=== PATIENT | female | born 1960 | race Caucasian/White ===

== ENCOUNTER 2020-06-04 09:28 | Emergency (ER) | payer BC, SELFPAY ==
--- NOTE | 2020-06-04 09:36 | DI.RAD.S_ITS ---
PROCEDURE: XR CHEST 1V INDICATIONS: chest pain TECHNIQUE: One view of the chest was acquired. COMPARISON: None. FINDINGS: Surgical changes and devices: None. Lungs and pleura: Lungs are clear. There is pulmonary interstitial prominence. No pleural effusions or pneumothorax. Mediastinum: Mediastinal contours appear normal. Heart size is normal. Bones and chest wall: No suspicious bony lesions. Overlying soft tissues appear unremarkable. IMPRESSION: No acute cardiopulmonary disease. Dictated by: Everton Sesay M.D. on 06/04/2020 at 10:53 Approved by: Everton Sesay M.D. on 06/04/2020 at 10:54
[2020-06-04 09:42] VITALS: BMI 32.9
[2020-06-04 09:44] VITALS: PULSE 85; RESP 19; O2SAT 96
[2020-06-04 10:00] VITALS: BP 129/79; PULSE 83; RESP 14; O2SAT 98
--- NOTE | 2020-06-04 10:00 | ED_ITS ---
HPI - Dizziness General Chief Complaint: Dizziness Stated Complaint: dizzy, heart beat is irregular Time Seen by Provider: 06/04/20 09:48 Source: patient Mode of arrival: Ambulatory Limitations: no limitations History of Present Illness HPI Narrative: Patient is a 59-year-old female presents with heart palpitations. She says they have been happening off and on for some time however today she feels like it was significantly worse and more frequent. She says she feels it with exertion sometimes and squatting down. She has had some testing done she had pulmonary function test and a heart stress test previously for this and she said that was fine. Today she just said it was not going away and she felt extremely dizzy and lightheaded. She is noted to have PVCs on the monitor. However at this time the seem to be in frequent she states that she is feeling better. She has not passed out. MD complaint: dizziness Timing: now resolved Description: lightheadedness Severity: moderate Review of Systems Review of Systems Narrative: GENERAL: Denies chills, fatigue, malaise, fever, sweats, travel HEENT: Denies sinus pain, ear pain, sore throat, difficulty swallowing, neck pain RESPIRATORY: Denies dyspnea, cough, wheezing, hemoptysis, sputum. CARDIOVASCULAR: + palpitations, + lightheaded see HPI GASTROINTESTINAL: Denies nausea, vomiting, abdominal pain, diarrhea, constipation, melena. : Denies dysuria, frequency, incontinence, hematuria, urinary retention, flank pain. MUSCULOSKELETAL: Denies weakness, joint pain, or bony pain SKIN: No rash, no erythema, no pruritus NEUROLOGIC: Denies weakness, headache, numbness, change in speech, confusion PSYCHIATRIC: No concerning psychosocial issues. 12 point review of systems is negative except for those stated above and HPI Patient History Medical History GERD (gastroesophageal reflux disease) (Acute) Hypothyroid (Acute) Social History Smoking Status: Former smoker Smoking Status: Former smoker Substance Use Type: does not use Exam Initial Vital Signs Initial Vital Signs: Vital Signs Pulse Rate 85 06/04/20 09:44 Respiratory Rate 19 06/04/20 09:44 Pulse Oximetry 96 06/04/20 09:44 GENERAL: Well-appearing, well-nourished and in no acute distress. HEENT: Head atraumatic,EOMI, pupils reactive, face symmetric, moist mucous membranes CARDIOVASCULAR: Regular rate and rhythm without murmurs, rubs or gallops. RESPIRATORY: Breath sounds equal bilaterally, no wheezes rales or rhonchi. ABDOMEN: Soft, nontender. Normoactive bowel sounds all 4 quadrants. No guarding or rebound. EXTREMITIES: Normal range of motion, no clubbing or edema. Neurovascularly intact NEUROLOGICAL: Alert and oriented x4.Normal gait and speech. SKIN: Warm, dry, no laceration, no petechiae, no rashes or lesions. Course Orders Ordered: ED Orders 06/04/20 10:36 Complete Blood Count AUTO DIFF Stat Comprehensive Metabolic Panel Stat Lipase Stat Partial Thromboplastin Time Stat Prothrombin Time INR Stat Thyroid Stimulating Hormone Stat Troponin & CK Cardiac Panel Stat Discontinued Medications Sodium Chloride (Normal Saline 0.9%) 1,000 mls @ 1,000 mls/hr IV BOLUS PRN PRN Reason: Fluid replacement Vital Signs Vital signs: Vital Signs - 8 hr 06/04/20 11:00 06/04/20 11:25 06/04/20 11:30 Pulse Rate 78 81 74 Respiratory Rate 25 H 9 L 14 Blood Pressure 137/73 134/77 Pulse Oximetry 95 96 95 MDM - Dizziness Lab Data Attestation: I reviewed the patient's lab results. Result diagrams: 06/04/20 10:36 06/04/20 10:36 Labs: Lab Results 06/04/20 06/04/20 06/04/20 Range/Units 10:36 10:36 10:36 WBC 8.8 (4.5-11.0) X10^3/uL RBC 4.56 (4.0-5.2) X10^6/uL Hgb 12.7 (12.0-16.0) g/dL Hct 37.8 (36-46) % MCV 82.9 (80-100) fL MCH 27.9 (26-34) PG MCHC 33.7 (30-36) % RDW 13.4 (11.6-14.8) % Plt Count 360 (150-400) X10^3/uL Neut % (Auto) 57.9 (50-75) % Lymph % (Auto) 26.5 (25-40) % Cata[place]oula % (Auto) 10.6 (3-14) % Eos % (Auto) 3.5 (2-4) % Baso % (Auto) 1.5 (0-2) % Neut # (Auto) 5100 (5495-6147) /uL Lymph # (Auto) 2300 (8578-6013) /uL C[place]oula # (Auto) 900 (0-900) /uL Eos # (Auto) 300 (0-450) /uL Baso # (Auto) 100 (0-100) /uL PT 24.4 H (10.1-12.7) SECONDS INR 2.1 H (0.9-1.3) APTT 40 H (26.4-36.2) SECONDS Sodium 138 (137-145) mmol/L Potassium 4.2 (3.4-5.1) mmol/L Chloride 103 (98-107) mmol/L Carbon Dioxide 30 (22-32) mmol/L BUN 20 H (7-17) mg/dL Creatinine 0.62 (0.52-1.04) mg/dL Estimated GFR > 60.0 (>60) mL/min BUN/Creatinine Ratio 32.3 H (6-22) Glucose 97 (70-100) mg/dL Calcium 9.5 (8.4-10.2) mg/dL Total Bilirubin 0.4 (0.2-1.3) mg/dL AST 41 H (14-36) IU/L ALT 41 H (<35) IU/L Alkaline Phosphatase 104 (38-126) U/L Total Creatine Kinase 77 (30-135) U/L CK-MB (CK-2) TNP CK-MB (CK-2) Rel Index TNP Troponin I < 0.012 (0.01-0.034) ng/mL Total Protein 7.4 (6.3-8.2) g/dL Albumin 4.3 (3.5-5.0) g/dL Globulin 3.1 (1.7-4.1) g/dL Albumin/Globulin Ratio 1.4 (1.0-2.8) Lipase 190 (23-300) U/L TSH (0.47-4.68) uIU/mL //20 Range/Units 10:36 WBC (4.5-11.0) X10^3/uL RBC (4.0-5.2) X10^6/uL Hgb (12.0-16.0) g/dL Hct (36-46) % MCV (80-100) fL MCH (26-34) PG MCHC (30-36) % RDW (11.6-14.8) % Plt Count (150-400) X10^3/uL Neut % (Auto) (50-75) % Lymph % (Auto) (25-40) % Cata[place]oula % (Auto) (3-14) % Eos % (Auto) (2-4) % Baso % (Auto) (0-2) % Neut # (Auto) (7053-2058) /uL Lymph # (Auto) (6399-5946) /uL Cata[place]oula # (Auto) (0-900) /uL Eos # (Auto) (0-450) /uL Baso # (Auto) (0-100) /uL PT (10.1-12.7) SECONDS INR (0.9-1.3) APTT (26.4-36.2) SECONDS Sodium (137-145) mmol/L Potassium (3.4-5.1) mmol/L Chloride (98-107) mmol/L Carbon Dioxide (22-32) mmol/L BUN (7-17) mg/dL Creatinine (0.52-1.04) mg/dL Estimated GFR (>60) mL/min BUN/Creatinine Ratio (6-22) Glucose (70-100) mg/dL Calcium (8.4-10.2) mg/dL Total Bilirubin (0.2-1.3) mg/dL AST (14-36) IU/L ALT (<35) IU/L Alkaline Phosphatase (38-126) U/L Total Creatine Kinase (30-135) U/L CK-MB (CK-2) CK-MB (CK-2) Rel Index Troponin I (0.01-0.034) ng/mL Total Protein (6.3-8.2) g/dL Albumin (3.5-5.0) g/dL Globulin (1.7-4.1) g/dL Albumin/Globulin Ratio (1.0-2.8) Lipase (23-300) U/L TSH 1.41 (0.47-4.68) uIU/mL Imaging Data Chest x-ray: Radiologist's Impression: PROCEDURE: XR CHEST 1V INDICATIONS: chest pain TECHNIQUE: One view of the chest was acquired. COMPARISON: None. FINDINGS: Surgical changes and devices: None. Lungs and pleura: Lungs are clear. There is pulmonary interstitial prominence. No pleural effusions or pneumothorax. Mediastinum: Mediastinal contours appear normal. Heart size is normal. Bones and chest wall: No suspicious bony lesions. Overlying soft tissues appear unremarkable. IMPRESSION: No acute cardiopulmonary disease. Dictated by: Everton Sesay M.D. on 06/04/2020 at 10:53 ECG Data Attestation: I personally reviewed and interpreted this ECG as follows: Prior ECG tracings: not available for review Interpretation: Normal sinus rhythm rate 86 p.r. interval 146 QRS [address] elevation depression or T-wave inversions MDM Narrative Medical decision making narrative: Patient has had infrequent PVCs on the monitor. She is overall feeling better blood work is reassuring. I recommend that she have an outpatient Holter monitor which can be set up with her PCP Discharge Plan Departure Patient Disposition: Home Clinical Impression: Heart palpitations, Premature ventricular contraction Discharge Date/Time: 06/04/20 12:02 Activity Restrictions/Additional Instructions: *You have been diagnosed with heart palpitations, PVCs *What to do: At this time I recommend you have outpatient workup including Holter monitor which your primary can set up for you *Continue to take medications as directed *Follow up with your primary care provider in 2-3 days *Return to ER if you should have increasing palpitations dizziness, lightheadedness, passing out, worsening chest or any new, worsening or concerning symptoms Referrals: Bj Wong MD [Primary Care Provider] -
[2020-06-04 10:30] VITALS: BP 119/80; PULSE 86; RESP 28; O2SAT 94
[2020-06-04 10:45] LABS: Add Manual Diff / Slide Review NO; Basophils Absolute Auto 100 /uL (0-100); Basophils Percent Auto 1.5 % (0-2); Eosinophils Absolute Auto 300 /uL (0-450); Eosinophils Percent Auto 3.5 % (2-4); Hematocrit 37.8 % (36-46); Hemoglobin 12.7 g/dL (12.0-16.0); Lymphocytes Absolute Auto 2300 /uL (1100-4500); Lymphocytes Percent Auto 26.5 % (25-40); Mean Corpuscular HGB Conc 33.7 % (30-36); Mean Corpuscular Hemoglobin 27.9 PG (26-34); Mean Corpuscular Volume 82.9 fL (80-100); Monocytes Absolute Auto 900 /uL (0-900); Monocytes Percent Auto 10.6 % (3-14); Neutrophils Absolute Auto 5100 /uL (1500-7000); Neutrophils Percent Auto 57.9 % (50-75); Platelet Count 360 X10^3/uL (150-400); Red Blood Cell Count 4.56 X10^6/uL (4.0-5.2); Red Cell Distribution Width 13.4 % (11.6-14.8); White Blood Cell Count 8.8 X10^3/uL (4.5-11.0)
[2020-06-04 10:52] LABS: INR 2.1 (0.9-1.3); Prothrombin Time 24.4 SECONDS (10.1-12.7)
[2020-06-04 10:54] LABS: PTT Partial Thromboplastin Tim 40 SECONDS (26.4-36.2)
[2020-06-04 10:57] LABS: Alanine Aminotransferase 41 IU/L (<35); Albumin 4.3 g/dL (3.5-5.0); Albumin Globulin Ratio 1.4 (1.0-2.8); Alkaline Phosphatase 104 U/L (38-126); Aspartate Aminotransferase 41 IU/L (14-36); BUN Creatinine Ratio 32.3 (6-22); Bilirubin Total 0.4 mg/dL (0.2-1.3); Blood Urea Nitrogen 20 mg/dL (7-17); Calcium 9.5 mg/dL (8.4-10.2); Carbon Dioxide 30 mmol/L (22-32); Chloride 103 mmol/L (98-107); Creatine Kinase 77 U/L (30-135); Estimated Glomerular Filt Rate > 60.0 mL/min (>60); Globulin 3.1 g/dL (1.7-4.1); Glucose 97 mg/dL (70-100); HEMOLYSIS < 15 (0-50); Lipase 190 U/L (23-300); Potassium 4.2 mmol/L (3.4-5.1); Sodium 138 mmol/L (137-145); Total Protein 7.4 g/dL (6.3-8.2)
[2020-06-04 11:00] VITALS: PULSE 78; RESP 25; O2SAT 95
[2020-06-04 11:08] LABS: Troponin I < 0.012 ng/mL (0.01-0.034)
[2020-06-04 11:25] VITALS: BP 137/73; PULSE 81; RESP 9; O2SAT 96
[2020-06-04 11:30] VITALS: BP 134/77; PULSE 74; RESP 14; O2SAT 95
[2020-06-04 11:34] LABS: Thyroid Stimulating Hormone 1.41 uIU/mL (0.47-4.68)
== END 2020-06-04 12:02 | disposition home or self-care (01) ==
PROVIDERS: Emergency Provider Emergency Medicine; PCP Family Medicine
DX: R00.2 Palpitations (principal); I49.3 Ventricular premature depolarization; R07.9 Chest pain, unspecified; K21.9 Gastro-esophageal reflux disease without esophagitis; E03.9 Hypothyroidism, unspecified
CPT/HCPCS: 36415; 71045; 80053; 82550; 83690; 84443; 84484; 85025; 85610; 85730; 93005; 99284

== ENCOUNTER 2021-02-07 07:30 | Outpatient (RCR) | payer OTHER, BC, SELFPAY ==
--- NOTE | 2020-12-11 12:04 | PT.OIE ---
Current Diagnoses Other chronic pain (12/11/20) Low back pain (12/11/20) Difficulty in walking, not elsewhere classified (12/11/20) Abnormal posture (12/11/20) Weakness (12/11/20) Past Medical History (Last Reviewed 06/04/20 @ 10:04 by Britney Laughlin DO) GERD (gastroesophageal reflux disease) Hypothyroid Visit Care Team Role Provider Type Bj Wong MD Attending Provider Non-Staff Primary Care Provider Referring Provider Specialty: Medical Address: [address] [place] [address], [phone] Email: Physical Therapy Initial Evaluation PT-OP-A Visit Information Start: 12/10/20 09:43 Freq: Status: Active Protocol: Document 12/11/20 08:21 [facility] (Rec: 12/11/20 09:01 [facility] [id number]) Out-Patient Physical Therapy Visit Information Visit Information Visit Type Initial Evaluation Visit Start Time 08:20 Visit Stop Time 09:00 Total Visit Minutes 40 Visit Number 1 Number of TREATMENT MANAGER Visits 0 PT-OP-B Current Condition Start: 12/10/20 09:43 Freq: Status: Active Protocol: Document 12/11/20 08:21 [facility] (Rec: 12/11/20 09:01 [facility] [id number]) Current Condition History of Current Condition Onset Date worsening 6 months ago Current Complaints LBP History of Current Condition Pt reports chronic LBP for a couple years where occ she tweaks it but it typically gets better and goes away relatively quickly. 6 months ago, pain started to get worse and is not going away. Pt reports her back felt out and couldn't stand and do stuff like she wants to and they updated furniture which has not made a big difference. Years ago, she fell off a stool to the ground and R side has been side that hurt. She has seen her chiropractor and has been still with short term relief. She did PT a while ago and he did a manipulation that did help her. 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 Has to move slowly to fully straighten up when getting up from chair. Pt reports mm relaxors were given and they only help her get to sleep but do not help w/ pain. Pt reports when she squats down, she cannot get up w/o something to hold onto. 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, R achilles lengthening PT-OP-C Subjective Start: 12/10/20 09:43 Freq: Status: Active Protocol: Document 12/11/20 08:21 [facility] (Rec: 12/11/20 09:01 [facility] [id number]) Patient Questionnaires Oswestry Low Back Index Oswestry Score 21/50 OP-PT Pain Assessment Location LB Pain Location Details R LB/SI region Scale Used 4/10 constant, worst 10/10 Frequency Constant Radiating Location B lat hips, L buttocks & post leg w/staying in position too long Pain Aggravating Factors Sitting,Walking,Lifting Other Pain Aggravating Factors sit>stand, get out of car Pain Alleviating Factors Cold PT-OP-F Manual Assessment Start: 12/10/20 09:43 Freq: Status: Active Protocol: Document 12/11/20 08:21 [facility] (Rec: 12/11/20 09:01 [facility] [id number]) Manual Assessments Joint Mobility Assessment Joint Mobility Assessment R ijliac crest higher, equal greater trochanters, B femoral IR, neutral tibias PT-OP-G Mobility & Gait Start: 12/10/20 09:43 Freq: Status: Active Protocol: Document 12/11/20 08:21 [facility] (Rec: 12/11/20 09:01 [facility] [id number]) OP Gait Assessment Comments Gait Comments dec push off w/pelvis rotation , LLE adduction PT-OP-J Posture/Palpation/Skin Start: 12/10/20 09:43 Freq: Status: Active Protocol: Document 12/11/20 08:21 [facility] (Rec: 12/11/20 09:01 [facility] [id number]) Posture Evaluation Oc Postural Classification System Oc Postural Classifications Posterior/Anterior Vertebral Compression Test 0 Elbow Flexion Test 2 Lumbar Protective Mechanism Left AP 0 Lumbar Protective Mechanism Right AP 0 Lumbar Protective Mechanism Left PA 2 Lumbar Protective Mechanism Right PA 3 Leg Swing Left Hard End Feel,Limited Leg Swing Right Hard End Feel Comments Posture Comments knees lock, inc kyphosis, slight R pelvic shear PT-OP-K Range of Motion Start: 12/10/20 09:43 Freq: Status: Active Protocol: Document 12/11/20 08:21 [facility] (Rec: 12/11/20 09:01 [facility] [id number]) Lumbar Spine Range of Motion Lumbar Spine Active Degrees Flexion 49 Extension 5 Rotation Left 31 Rotation Right 45 Lateral Flexion Left 17 Lateral Flexion Right 20 Comments pain on R side w/R SB PT-OP-L Special Tests Start: 12/10/20 09:43 Freq: Status: Active Protocol: Document 12/11/20 08:21 [facility] (Rec: 12/11/20 09:01 [facility] [id number]) Special Tests Lumbar Spine Special Tests Straight Leg Raise Test Results 78 L,74 R no back pain HS tightness Slump Test Results neg B PT-OP-M Strength Start: 12/10/20 09:43 Freq: Status: Active Protocol: Document 12/11/20 08:21 [facility] (Rec: 12/11/20 09:01 [facility] [id number]) Hip Strength Hip Manual Muscle Testing Right Flexion (L2) 3 Fair Extension (S1) 3 Fair Abduction 4 Good External Rotation 3+ Fair+ Internal Rotation 4 Good Comments pain w/hip flex Left Extension (S1) 3 Fair Abduction 4 Good External Rotation 4 Good Internal Rotation 4 Good Knee Strength Knee Manual Muscle Testing Right Flexion (S2) 5 Normal Extension (L3) 5 Normal Left Flexion (S2) 5 Normal Extension (L3) 5 Normal Ankle/Foot Strength Ankle and Foot Manual Muscle Testing Right Dorsiflexion (L4) 5 Normal Plantarflexion (S1) 5 Normal Left Dorsiflexion (L4) 5 Normal Plantarflexion (S1) 5 Normal Comments seatd PF testing B PT-OP-Q Treatments Start: 12/10/20 09:43 Freq: Status: Active Protocol: Document 12/11/20 08:21 [facility] (Rec: 12/11/20 09:01 [facility] [id number]) Therapeutic Exercises Prone Exercises ext Prone Exercise Name hip alt Side bilateral Reps/Minutes 10 PT-OP-T Assessment and Plan Start: 12/10/20 09:43 Freq: Status: Active Protocol: Document 12/11/20 08:21 [facility] (Rec: 12/11/20 09:01 [facility] [id number]) Physical Therapy Assessment Rehab Potential Rehabilitation Potential Good Evaluation Complexity Number of Personal Factors/Comorbidities 3 or More Number of Body Systems Impaired 4 or More Clinical Presentation at Evaluation Evolving Impairments Impairments Activity Tolerance,Functional Activities,Functional Mobility ,Gait,Pain,Posture,ROM,Soft Tissue Mobility,Strength, Transfers Goals posture Deployment Manager Goal (LTG) Pt will show improved posture w/improvement in score of VCT to at least 3/5 to imrpove core mm activiation & dec pain . LTG Duration 02/08/21 walking Short Term Goal (STG) pt will be able to walk .5 mile with no more than 2 point increase in pain. STG Duration 01/08/21 Deployment Manager Goal (LTG) Pt will be able to return to walking program and walk 2 miles without increased pain. LTG Duration 02/08/21 JEIMY Impairment 21/50 Short Term Goal (STG) Pt will improve JEIMY score to 15/50 to show improved functional ability. STG Duration 01/08/21 Deployment Manager Goal (LTG) Pt will improve JEIMY score to 5 /50 to show improved functional ability. LTG Duration 02/08/21 mobility Short Term Goal (STG) Pt will be able to do sit to stand from chair without increased pain and without difficulty. STG Duration 01/08/21 Usp Goal (LTG) Pt will be able to squat to ground and lift objects with good mechanics without difficulty or inc pain. LTG Duration 02/08/21 strength Usp Goal (LTG) Pt will score 3/5 LPM, 4/5 EFT & at least 4+/5 on all LE MMT to show improved strength and stability to allow pt to move more with less pain. LTG Duration 02/08/21 Assessment Summary Assessment Pt has chronic LBP with occ pain into B hips and pain into LLE that has worsened in the past 6 months. She has constant pain that increases with staying in any position too long especially sitting or walking extended. She is unable to lift and noticed difficulty w/straightening up after getting out of a chair d /t back pain and difficulty squatting towards the ground d /t leg weakness. She had overall dec core & LE strengthen when tested today, impaired gait mechanics, dec lumbar ROM, and impaired posture. She would benefit from skilled PT to work on these deficits in order to return her to typical daily activities without increased pain. Physical Therapy Plan Frequency and Duration Frequency of Treatment 2x/Week Duration of Treatment 2 months Plan of Care Start Date 12/11/20 Plan of Care End Date 02/08/21 Therapeutic Interventions Therapeutic Interventions Aquatic Therapy,Balance Training,Gait Training,Home Exercise Program,Joint Mobilizations,Manual Therapy, Neuromuscular Re-education, Patient/Caregiver Education, Self-Care/Home Management,Soft Tissue Mobilization,Taping, Therapeutic Activities, Therapeutic Exercises Modalities Cold Pack/Ice Massage,Electric Stimulation,Hot Packs, Traction- Mechanical, Ultrasound Next Visit Focus/Plan Next Note Type Treatment Note Next Visit Plan sleep position, desk position, core exercise program, manual STM to lumbar spine
--- NOTE | 2020-12-11 12:04 | PT.OPPOC ---
Physical, Occupational & Speech Therapy At [facility] Current Diagnoses Other chronic pain (12/11/20) Low back pain (12/11/20) Difficulty in walking, not elsewhere classified (12/11/20) Abnormal posture (12/11/20) Weakness (12/11/20) Visit Care Team Role Provider Type Bj Wong MD Attending Provider Non-Staff Primary Care Provider Referring Provider Specialty: Medical Address: [address] [place] [address], [phone] Email: Plan Of Care PT-OP-T Assessment and Plan Start: 12/10/20 09:43 Freq: Status: Active Protocol: Document 12/11/20 08:21 [facility] (Rec: 12/11/20 09:01 [facility] [id number]) Physical Therapy Assessment Rehab Potential Rehabilitation Potential Good Evaluation Complexity Number of Personal Factors/Comorbidities 3 or More Number of Body Systems Impaired 4 or More Clinical Presentation at Evaluation Evolving Impairments Impairments Activity Tolerance,Functional Activities,Functional Mobility ,Gait,Pain,Posture,ROM,Soft Tissue Mobility,Strength, Transfers Goals posture Nursing Home Goal (LTG) Pt will show improved posture w/improvement in score of VCT to at least 3/5 to imrpove core mm activiation & dec pain . LTG Duration 02/08/21 walking Short Term Goal (STG) pt will be able to walk .5 mile with no more than 2 point increase in pain. STG Duration 01/08/21 Drop Forger Goal (LTG) Pt will be able to return to walking program and walk 2 miles without increased pain. LTG Duration 02/08/21 JEIMY Impairment 21/50 Short Term Goal (STG) Pt will improve JEIMY score to 15/50 to show improved functional ability. STG Duration 01/08/21 Nursing Home Goal (LTG) Pt will improve JEIMY score to 5 /50 to show improved functional ability. LTG Duration 02/08/21 mobility Short Term Goal (STG) Pt will be able to do sit to stand from chair without increased pain and without difficulty. STG Duration 01/08/21 Nursing Home Goal (LTG) Pt will be able to squat to ground and lift objects with good mechanics without difficulty or inc pain. LTG Duration 02/08/21 strength Nursing Home Goal (LTG) Pt will score 3/5 LPM, 4/5 EFT & at least 4+/5 on all LE MMT to show improved strength and stability to allow pt to move more with less pain. LTG Duration 02/08/21 Assessment Summary Assessment Pt has chronic LBP with occ pain into B hips and pain into LLE that has worsened in the past 6 months. She has constant pain that increases with staying in any position too long especially sitting or walking extended. She is unable to lift and noticed difficulty w/straightening up after getting out of a chair d /t back pain and difficulty squatting towards the ground d /t leg weakness. She had overall dec core & LE strengthen when tested today, impaired gait mechanics, dec lumbar ROM, and impaired posture. She would benefit from skilled PT to work on these deficits in order to return her to typical daily activities without increased pain. Physical Therapy Plan Frequency and Duration Frequency of Treatment 2x/Week Duration of Treatment 2 months Plan of Care Start Date 12/11/20 Plan of Care End Date 02/08/21 Therapeutic Interventions Therapeutic Interventions Aquatic Therapy,Balance Training,Gait Training,Home Exercise Program,Joint Mobilizations,Manual Therapy, Neuromuscular Re-education, Patient/Caregiver Education, Self-Care/Home Management,Soft Tissue Mobilization,Taping, Therapeutic Activities, Therapeutic Exercises Modalities Cold Pack/Ice Massage,Electric Stimulation,Hot Packs, Traction- Mechanical, Ultrasound Next Visit Focus/Plan Next Note Type Treatment Note Next Visit Plan sleep position, desk position, core exercise program, manual STM to lumbar spine Plan of Care Dates Plan of Care Start Date 12/11/20 Plan of Care End Date 02/08/21 Electronically Signed by: Leta Miller, PT 12/11/20 [id number] Please Sign and Return: I have reviewed this Plan of Care and certify that the skilled therapy services above are required to meet the patient?s needs. Physician Signature Date Printed Name and Credentials Clinical Instructor Signature Printed Name and Credentials
--- NOTE | 2020-12-18 13:46 | PT.OTN ---
Current Diagnoses Other chronic pain (12/18/20) Low back pain (12/18/20) Difficulty in walking, not elsewhere classified (12/18/20) Abnormal posture (12/18/20) Weakness (12/18/20) Physical Therapy Treatment Note PT-OP-A Visit Information Start: 12/10/20 09:43 Freq: Status: Active Protocol: Document 12/18/20 13:02 [facility] (Rec: 12/18/20 13:46 [facility] [id number]) Out-Patient Physical Therapy Visit Information Visit Information Visit Type Treatment Note Visit Start Time 13:00 Visit Stop Time 13:51 Total Visit Minutes 51 Visit Number 2 Number of CUSTOMS VERIFIER Visits 0 PT-OP-B Current Condition Start: 12/10/20 09:43 Freq: Status: Active Protocol: Document 12/11/20 08:21 [facility] (Rec: 12/11/20 09:01 [facility] [id number]) Current Condition History of Current Condition Onset Date worsening 6 months ago Current Complaints LBP History of Current Condition Pt reports chronic LBP for a couple years where occ she tweaks it but it typically gets better and goes away relatively quickly. 6 months ago, pain started to get worse and is not going away. Pt reports her back felt out and couldn't stand and do stuff like she wants to and they updated furniture which has not made a big difference. Years ago, she fell off a stool to the ground and R side has been side that hurt. She has seen her chiropractor and has been still with short term relief. She did PT a while ago and he did a manipulation that did help her. 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 Has to move slowly to fully straighten up when getting up from chair. Pt reports mm relaxors were given and they only help her get to sleep but do not help w/ pain. Pt reports when she squats down, she cannot get up w/o something to hold onto. 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 FOrgot exercise PT-OP-F Manual Assessment Start: 12/10/20 09:43 Freq: Status: Active Protocol: Document 12/11/20 08:21 [facility] (Rec: 12/11/20 09:01 [facility] [id number]) Manual Assessments Joint Mobility Assessment Joint Mobility Assessment R ijliac crest higher, equal greater trochanters, B femoral IR, neutral tibias PT-OP-G Mobility & Gait Start: 12/10/20 09:43 Freq: Status: Active Protocol: Document 12/11/20 08:21 [facility] (Rec: 12/11/20 09:01 [facility] [id number]) OP Gait Assessment Comments Gait Comments dec push off w/pelvis rotation , LLE adduction PT-OP-J Posture/Palpation/Skin Start: 12/10/20 09:43 Freq: Status: Active Protocol: Document 12/11/20 08:21 [facility] (Rec: 12/11/20 09:01 [facility] [id number]) Posture Evaluation [facility] Postural Classification System Oc Postural Classifications Posterior/Anterior Vertebral Compression Test 0 Elbow Flexion Test 2 Lumbar Protective Mechanism Left AP 0 Lumbar Protective Mechanism Right AP 0 Lumbar Protective Mechanism Left PA 2 Lumbar Protective Mechanism Right PA 3 Leg Swing Left Hard End Feel,Limited Leg Swing Right Hard End Feel Comments Posture Comments knees lock, inc kyphosis, slight R pelvic shear PT-OP-K Range of Motion Start: 12/10/20 09:43 Freq: Status: Active Protocol: Document 12/11/20 08:21 [facility] (Rec: 12/11/20 09:01 [facility] [id number]) Lumbar Spine Range of Motion Lumbar Spine Active Degrees Flexion 49 Extension 5 Rotation Left 31 Rotation Right 45 Lateral Flexion Left 17 Lateral Flexion Right 20 Comments pain on R side w/R SB PT-OP-L Special Tests Start: 12/10/20 09:43 Freq: Status: Active Protocol: Document 12/11/20 08:21 [facility] (Rec: 12/11/20 09:01 [facility] [id number]) Special Tests Lumbar Spine Special Tests Straight Leg Raise Test Results 78 L,74 R no back pain HS tightness Slump Test Results neg B PT-OP-M Strength Start: 12/10/20 09:43 Freq: Status: Active Protocol: Document 12/11/20 08:21 [facility] (Rec: 12/11/20 09:01 [facility] [id number]) Hip Strength Hip Manual Muscle Testing Right Flexion (L2) 3 Fair Extension (S1) 3 Fair Abduction 4 Good External Rotation 3+ Fair+ Internal Rotation 4 Good Comments pain w/hip flex Left Extension (S1) 3 Fair Abduction 4 Good External Rotation 4 Good Internal Rotation 4 Good Knee Strength Knee Manual Muscle Testing Right Flexion (S2) 5 Normal Extension (L3) 5 Normal Left Flexion (S2) 5 Normal Extension (L3) 5 Normal Ankle/Foot Strength Ankle and Foot Manual Muscle Testing Right Dorsiflexion (L4) 5 Normal Plantarflexion (S1) 5 Normal Left Dorsiflexion (L4) 5 Normal Plantarflexion (S1) 5 Normal Comments seatd PF testing B PT-OP-Q Treatments Start: 12/10/20 09:43 Freq: Status: Active Protocol: Document 12/18/20 13:02 [facility] (Rec: 12/18/20 13:46 [facility] [id number]) Therapeutic Exercises Supine Exercises bridge Supine Exercise Name focus on neutral core & berathing Side bilateral Reps/Minutes 5 sec x8 pelvic tilt Reps/Minutes 10 sec x8 Comments focus breathing hip iso Supine Exercise Name flex single leg Side bilateral Reps/Minutes 30 sec Prone Exercises ext Prone Exercise Name hip alt Side bilateral Reps/Minutes 10 Therapeutic Activity Therapeutic Activity desk Name edu on desk set up and working on seated posture w/leg support sleep Name s/l sleep positioning w/ pillows Manual Therapy Treatment Soft Tissue Mobilization lumbar Body Location R>L QL & ES Mobilization Type Rolling,Strumming Intensity/Depth Moderate Body Position Prone PT-OP-R Modalities Start: 12/10/20 09:43 Freq: Status: Active Protocol: Document 12/18/20 13:02 [facility] (Rec: 12/18/20 13:46 [facility] [id number]) Hot Pack/Cold Pack Treatment Cold Pack Location lumbar Patient Position Prone Treatment Duration (minutes) 10 PT-OP-T Assessment and Plan Start: 12/10/20 09:43 Freq: Status: Active Protocol: Document 12/18/20 13:02 [facility] (Rec: 12/18/20 13:46 [facility] [id number]) Physical Therapy Assessment Goals posture Usp Goal (LTG) Pt will show improved posture w/improvement in score of VCT to at least 3/5 to imrpove core mm activiation & dec pain . LTG Duration 02/08/21 walking Short Term Goal (STG) pt will be able to walk .5 mile with no more than 2 point increase in pain. STG Duration 01/08/21 Usp Goal (LTG) Pt will be able to return to walking program and walk 2 miles without increased pain. LTG Duration 02/08/21 JEIMY Impairment 21/50 Short Term Goal (STG) Pt will improve JEIMY score to 15/50 to show improved functional ability. STG Duration 01/08/21 Usp Goal (LTG) Pt will improve JEIMY score to 5 /50 to show improved functional ability. LTG Duration 02/08/21 mobility Short Term Goal (STG) Pt will be able to do sit to stand from chair without increased pain and without difficulty. STG Duration 01/08/21 Director Of [employer] Applications Goal (LTG) Pt will be able to squat to ground and lift objects with good mechanics without difficulty or inc pain. LTG Duration 02/08/21 strength Usp Goal (LTG) Pt will score 3/5 LPM, 4/5 EFT & at least 4+/5 on all LE MMT to show improved strength and stability to allow pt to move more with less pain. LTG Duration 02/08/21 Assessment Summary Assessment Pt did well with excericses with no c/o pain but required signifiacnt cueing for breathing during exercises. Pt very opent o all desk and sleeping position suggestions. Physical Therapy Plan Frequency and Duration Frequency of Treatment 2x/Week Duration of Treatment 2 months Plan of Care Start Date 12/11/20 Plan of Care End Date 02/08/21 Next Visit Focus/Plan Next Note Type Treatment Note Next Visit Plan review HEP & manual for dec pain
--- NOTE | 2020-12-21 14:32 | PT.OTN ---
Current Diagnoses Other chronic pain (12/21/20) Low back pain (12/21/20) Difficulty in walking, not elsewhere classified (12/21/20) Abnormal posture (12/21/20) Weakness (12/21/20) Physical Therapy Treatment Note PT-OP-A Visit Information Start: 12/10/20 09:43 Freq: Status: Active Protocol: Document 12/21/20 13:52 [facility] (Rec: 12/21/20 14:32 [facility] [id number]) Out-Patient Physical Therapy Visit Information Visit Information Visit Type Treatment Note Visit Start Time 13:45 Visit Stop Time 14:23 Total Visit Minutes 38 Visit Number 3 Number of MANAGER TECHNOLOGY Visits 1 PT-OP-B Current Condition Start: 12/10/20 09:43 Freq: Status: Active Protocol: Document 12/11/20 08:21 [facility] (Rec: 12/11/20 09:01 [facility] [id number]) Current Condition History of Current Condition Onset Date worsening 6 months ago Current Complaints LBP History of Current Condition Pt reports chronic LBP for a couple years where occ she tweaks it but it typically gets better and goes away relatively quickly. 6 months ago, pain started to get worse and is not going away. Pt reports her back felt out and couldn't stand and do stuff like she wants to and they updated furniture which has not made a big difference. Years ago, she fell off a stool to the ground and R side has been side that hurt. She has seen her chiropractor and has been still with short term relief. She did PT a while ago and he did a manipulation that did help her. 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 Has to move slowly to fully straighten up when getting up from chair. Pt reports mm relaxors were given and they only help her get to sleep but do not help w/ pain. Pt reports when she squats down, she cannot get up w/o something to hold onto. 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 (Rec: 12/11/20 09:01 [facility] [id number]) Manual Assessments Joint Mobility Assessment Joint Mobility Assessment R ijliac crest higher, equal greater trochanters, B femoral IR, neutral tibias PT-OP-G Mobility & Gait Start: 12/10/20 09:43 Freq: Status: Active Protocol: Document 12/11/20 08:21 [facility] (Rec: 12/11/20 09:01 [facility] [id number]) OP Gait Assessment Comments Gait Comments dec push off w/pelvis rotation , LLE adduction PT-OP-J Posture/Palpation/Skin Start: 12/10/20 09:43 Freq: Status: Active Protocol: Document 12/11/20 08:21 [facility] (Rec: 12/11/20 09:01 [facility] [id number]) Posture Evaluation [facility] Postural Classification System Oc Postural Classifications Posterior/Anterior Vertebral Compression Test 0 Elbow Flexion Test 2 Lumbar Protective Mechanism Left AP 0 Lumbar Protective Mechanism Right AP 0 Lumbar Protective Mechanism Left PA 2 Lumbar Protective Mechanism Right PA 3 Leg Swing Left Hard End Feel,Limited Leg Swing Right Hard End Feel Comments Posture Comments knees lock, inc kyphosis, slight R pelvic shear PT-OP-K Range of Motion Start: 12/10/20 09:43 Freq: Status: Active Protocol: Document 12/11/20 08:21 [facility] (Rec: 12/11/20 09:01 [facility] [id number]) Lumbar Spine Range of Motion Lumbar Spine Active Degrees Flexion 49 Extension 5 Rotation Left 31 Rotation Right 45 Lateral Flexion Left 17 Lateral Flexion Right 20 Comments pain on R side w/R SB PT-OP-L Special Tests Start: 12/10/20 09:43 Freq: Status: Active Protocol: Document 12/11/20 08:21 [facility] (Rec: 12/11/20 09:01 [facility] [id number]) Special Tests Lumbar Spine Special Tests Straight Leg Raise Test Results 78 L,74 R no back pain HS tightness Slump Test Results neg B PT-OP-M Strength Start: 12/10/20 09:43 Freq: Status: Active Protocol: Document 12/11/20 08:21 [facility] (Rec: 12/11/20 09:01 [facility] [id number]) Hip Strength Hip Manual Muscle Testing Right Flexion (L2) 3 Fair Extension (S1) 3 Fair Abduction 4 Good External Rotation 3+ Fair+ Internal Rotation 4 Good Comments pain w/hip flex Left Extension (S1) 3 Fair Abduction 4 Good External Rotation 4 Good Internal Rotation 4 Good Knee Strength Knee Manual Muscle Testing Right Flexion (S2) 5 Normal Extension (L3) 5 Normal Left Flexion (S2) 5 Normal Extension (L3) 5 Normal Ankle/Foot Strength Ankle and Foot Manual Muscle Testing Right Dorsiflexion (L4) 5 Normal Plantarflexion (S1) 5 Normal Left Dorsiflexion (L4) 5 Normal Plantarflexion (S1) 5 Normal Comments seatd PF testing B PT-OP-Q Treatments Start: 12/10/20 09:43 Freq: Status: Active Protocol: Document 12/21/20 13:52 [facility] (Rec: 12/21/20 14:32 [facility] [id number]) Therapeutic Exercises Supine Exercises LTR Supine Exercise Name lower trunk rotation Side bilateral Reps/Minutes x8 bridge Supine Exercise Name focus on neutral core & berathing Side bilateral Reps/Minutes 5 sec x8 pelvic tilt Reps/Minutes 10 sec x8 Comments focus breathing Sidelying Exercises open book Side bilateral Reps/Minutes x8 Comments L shd hurts-d/c Therapeutic Activity Therapeutic Activity Picking up objects Name picking up objects from floor Comments Focusing on bending knees, flexing fwd from hips Manual Therapy Treatment Soft Tissue Mobilization lumbar Body Location R>L QL & ES Mobilization Type Rolling,Strumming Intensity/Depth Moderate Body Position Prone Comments prone and SL PT-OP-R Modalities Start: 12/10/20 09:43 Freq: Status: Active Protocol: Document 12/18/20 13:02 [facility] (Rec: 12/18/20 13:46 [facility] [id number]) Hot Pack/Cold Pack Treatment Cold Pack Location lumbar Patient Position Prone Treatment Duration (minutes) 10 PT-OP-T Assessment and Plan Start: 12/10/20 09:43 Freq: Status: Active Protocol: Document 12/21/20 13:52 [facility] (Rec: 12/21/20 14:32 [facility] [id number]) Physical Therapy Assessment Goals posture Retirement Goal (LTG) Pt will show improved posture w/improvement in score of VCT to at least 3/5 to imrpove core mm activiation & dec pain . LTG Duration 02/08/21 walking Short Term Goal (STG) pt will be able to walk .5 mile with no more than 2 point increase in pain. STG Duration 01/08/21 Running Specialist Goal (LTG) Pt will be able to return to walking program and walk 2 miles without increased pain. LTG Duration 02/08/21 JEIMY Impairment 21/50 Short Term Goal (STG) Pt will improve JEIMY score to 15/50 to show improved functional ability. STG Duration 01/08/21 Running Specialist Goal (LTG) Pt will improve JEIMY score to 5 /50 to show improved functional ability. LTG Duration 02/08/21 mobility Short Term Goal (STG) Pt will be able to do sit to stand from chair without increased pain and without difficulty. STG Duration 01/08/21 Retirement Goal (LTG) Pt will be able to squat to ground and lift objects with good mechanics without difficulty or inc pain. LTG Duration 02/08/21 strength Running Specialist Goal (LTG) Pt will score 3/5 LPM, 4/5 EFT & at least 4+/5 on all LE MMT to show improved strength and stability to allow pt to move more with less pain. LTG Duration 02/08/21 Assessment Summary Assessment Pt had L shd pain when SL on R during open book exercise but no pain when opening R. She has decreased thoracic rotation. Pt is working on getting a referral for L shd pain. She had no back pain during today's ther ex. Pt is still working on getting proper desk set up and working on finding a good sleep position. Focused today on picking up objects from floor/ how to properly lift dogs with knees bent, flexing fwd from hips with pt showing good understanding. Physical Therapy Plan Frequency and Duration Frequency of Treatment 2x/Week Duration of Treatment 2 months Plan of Care Start Date 12/11/20 Plan of Care End Date 02/08/21 Therapeutic Interventions Therapeutic Interventions Aquatic Therapy,Balance Training,Gait Training,Home Exercise Program,Joint Mobilizations,Manual Therapy, Neuromuscular Re-education, Patient/Caregiver Education, Self-Care/Home Management,Soft Tissue Mobilization,Taping, Therapeutic Activities, Therapeutic Exercises Modalities Cold Pack/Ice Massage,Electric Stimulation,Hot Packs, Traction- Mechanical, Ultrasound Next Visit Focus/Plan Next Note Type Treatment Note Next Visit Plan review proper form for lifting dogs/picking up objects from floor; manual for decreasing pain and add LTR to HEP
--- NOTE | 2020-12-24 10:32 | PT.OTN ---
Current Diagnoses Other chronic pain (12/24/20) Low back pain (12/24/20) Difficulty in walking, not elsewhere classified (12/24/20) Abnormal posture (12/24/20) Weakness (12/24/20) Physical Therapy Treatment Note PT-OP-A Visit Information Start: 12/10/20 09:43 Freq: Status: Active Protocol: Document 12/24/20 09:47 [facility] (Rec: 12/24/20 10:32 [facility] [id number]) Out-Patient Physical Therapy Visit Information Visit Information Visit Type Treatment Note Visit Start Time 09:45 Visit Stop Time 10:38 Total Visit Minutes 53 Visit Number 4 Number of BACKUP OPERATOR Visits 0 PT-OP-B Current Condition Start: 12/10/20 09:43 Freq: Status: Active Protocol: Document 12/11/20 08:21 [facility] (Rec: 12/11/20 09:01 [facility] [id number]) Current Condition History of Current Condition Onset Date worsening 6 months ago Current Complaints LBP History of Current Condition Pt reports chronic LBP for a couple years where occ she tweaks it but it typically gets better and goes away relatively quickly. 6 months ago, pain started to get worse and is not going away. Pt reports her back felt out and couldn't stand and do stuff like she wants to and they updated furniture which has not made a big difference. Years ago, she fell off a stool to the ground and R side has been side that hurt. She has seen her chiropractor and has been still with short term relief. She did PT a while ago and he did a manipulation that did help her. 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 Has to move slowly to fully straighten up when getting up from chair. Pt reports mm relaxors were given and they only help her get to sleep but do not help w/ pain. Pt reports when she squats down, she cannot get up w/o something to hold onto. 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 (Rec: 12/24/20 10:32 [facility] [id number]) OP-PT Subjective Patient Comments Patient Comments Pt reprots compliance with HEP and it is going better PT-OP-F Manual Assessment Start: 12/10/20 09:43 Freq: Status: Active Protocol: Document 12/11/20 08:21 [facility] (Rec: 12/11/20 09:01 [facility] [id number]) Manual Assessments Joint Mobility Assessment Joint Mobility Assessment R ijliac crest higher, equal greater trochanters, B femoral IR, neutral tibias PT-OP-G Mobility & Gait Start: 12/10/20 09:43 Freq: Status: Active Protocol: Document 12/11/20 08:21 [facility] (Rec: 12/11/20 09:01 [facility] [id number]) OP Gait Assessment Comments Gait Comments dec push off w/pelvis rotation , LLE adduction PT-OP-J Posture/Palpation/Skin Start: 12/10/20 09:43 Freq: Status: Active Protocol: Document 12/11/20 08:21 [facility] (Rec: 12/11/20 09:01 [facility] [id number]) Posture Evaluation [facility] Postural Classification System Oc Postural Classifications Posterior/Anterior Vertebral Compression Test 0 Elbow Flexion Test 2 Lumbar Protective Mechanism Left AP 0 Lumbar Protective Mechanism Right AP 0 Lumbar Protective Mechanism Left PA 2 Lumbar Protective Mechanism Right PA 3 Leg Swing Left Hard End Feel,Limited Leg Swing Right Hard End Feel Comments Posture Comments knees lock, inc kyphosis, slight R pelvic shear PT-OP-K Range of Motion Start: 12/10/20 09:43 Freq: Status: Active Protocol: Document 12/11/20 08:21 [facility] (Rec: 12/11/20 09:01 [facility] [id number]) Lumbar Spine Range of Motion Lumbar Spine Active Degrees Flexion 49 Extension 5 Rotation Left 31 Rotation Right 45 Lateral Flexion Left 17 Lateral Flexion Right 20 Comments pain on R side w/R SB PT-OP-L Special Tests Start: 12/10/20 09:43 Freq: Status: Active Protocol: Document 12/11/20 08:21 [facility] (Rec: 12/11/20 09:01 [facility] [id number]) Special Tests Lumbar Spine Special Tests Straight Leg Raise Test Results 78 L,74 R no back pain HS tightness Slump Test Results neg B PT-OP-M Strength Start: 12/10/20 09:43 Freq: Status: Active Protocol: Document 12/11/20 08:21 [facility] (Rec: 12/11/20 09:01 [facility] [id number]) Hip Strength Hip Manual Muscle Testing Right Flexion (L2) 3 Fair Extension (S1) 3 Fair Abduction 4 Good External Rotation 3+ Fair+ Internal Rotation 4 Good Comments pain w/hip flex Left Extension (S1) 3 Fair Abduction 4 Good External Rotation 4 Good Internal Rotation 4 Good Knee Strength Knee Manual Muscle Testing Right Flexion (S2) 5 Normal Extension (L3) 5 Normal Left Flexion (S2) 5 Normal Extension (L3) 5 Normal Ankle/Foot Strength Ankle and Foot Manual Muscle Testing Right Dorsiflexion (L4) 5 Normal Plantarflexion (S1) 5 Normal Left Dorsiflexion (L4) 5 Normal Plantarflexion (S1) 5 Normal Comments seatd PF testing B PT-OP-Q Treatments Start: 12/10/20 09:43 Freq: Status: Active Protocol: Document 12/24/20 09:47 [facility] (Rec: 12/24/20 10:32 [facility] [id number]) Therapeutic Exercises Supine Exercises LTR Supine Exercise Name focus on segmental control Side bilateral Reps/Minutes 8 bridge Supine Exercise Name progressed to january focus on neutral spien Side bilateral Reps/Minutes 10 pelvic tilt Reps/Minutes 5 hip iso Supine Exercise Name double leg Side bilateral Reps/Minutes 30 sec Standing Exercises stretch Standing Exercise Name hip flexor Side bilateral Reps/Minutes 30 sec squat Standing Exercise Name 1st set w/yard stick Side bilateral Reps/Minutes 2x12 hip hinge Side bilateral Reps/Minutes 15 Comments w/yard stick on back Manual Therapy Treatment Soft Tissue Mobilization glutes Body Location R Glutes & piriformis Mobilization Type Sustained Pressure Intensity/Depth Moderate Body Position Prone Comments w/hip ER/IR Joint Mobilizations hip Direction R hip on axis ER FM & B inf FM Self-Care/Home Management Treatment Education Other Education tennis ball roll out to glutes PT-OP-R Modalities Start: 12/10/20 09:43 Freq: Status: Active Protocol: Document 12/24/20 09:47 [facility] (Rec: 12/24/20 10:32 [facility] [id number]) Hot Pack/Cold Pack Treatment Cold Pack Location lumbar Patient Position Prone Treatment Duration (minutes) 10 PT-OP-T Assessment and Plan Start: 12/10/20 09:43 Freq: Status: Active Protocol: Document 12/24/20 09:47 [facility] (Rec: 12/24/20 10:32 [facility] [id number]) Physical Therapy Assessment Goals posture Senior Care Goal (LTG) Pt will show improved posture w/improvement in score of VCT to at least 3/5 to imrpove core mm activiation & dec pain . LTG Duration 02/08/21 walking Short Term Goal (STG) pt will be able to walk .5 mile with no more than 2 point increase in pain. STG Duration 01/08/21 Freelance Digital Project Manager Goal (LTG) Pt will be able to return to walking program and walk 2 miles without increased pain. LTG Duration 02/08/21 JEIMY Impairment 21/50 Short Term Goal (STG) Pt will improve JEIMY score to 15/50 to show improved functional ability. STG Duration 01/08/21 Freelance Digital Project Manager Goal (LTG) Pt will improve JEIMY score to 5 /50 to show improved functional ability. LTG Duration 02/08/21 mobility Short Term Goal (STG) Pt will be able to do sit to stand from chair without increased pain and without difficulty. STG Duration 01/08/21 Freelance Digital Project Manager Goal (LTG) Pt will be able to squat to ground and lift objects with good mechanics without difficulty or inc pain. LTG Duration 02/08/21 strength Freelance Digital Project Manager Goal (LTG) Pt will score 3/5 LPM, 4/5 EFT & at least 4+/5 on all LE MMT to show improved strength and stability to allow pt to move more with less pain. LTG Duration 02/08/21 Assessment Summary Assessment Pt had imrpoved hip flex and no pain with squat or full knee to chest push after inf mobs and improved ER on R side after ER mobs. She has tightness in glutes which likely limit motion and ability to get RLE onto LLE Physical Therapy Plan Next Visit Focus/Plan Next Note Type Treatment Note Next Visit Plan work on hip mobs & soft tissue massage as needed for better ROM, review bridge with march & hip hinge & squat
--- NOTE | 2020-12-27 11:46 | PT.OTN ---
Current Diagnoses Other chronic pain (12/27/20) Low back pain (12/27/20) Difficulty in walking, not elsewhere classified (12/27/20) Abnormal posture (12/27/20) Weakness (12/27/20) Physical Therapy Treatment Note PT-OP-A Visit Information Start: 12/10/20 09:43 Freq: Status: Active Protocol: Document 12/27/20 10:35 [facility] (Rec: 12/27/20 11:45 [facility] [id number]) Out-Patient Physical Therapy Visit Information Visit Information Visit Type Treatment Note Visit Start Time 10:36 Visit Stop Time 11:16 Total Visit Minutes 40 Visit Number 5 Number of FLASK PUSHER Visits 0 PT-OP-B Current Condition Start: 12/10/20 09:43 Freq: Status: Active Protocol: Document 12/11/20 08:21 [facility] (Rec: 12/11/20 09:01 [facility] [id number]) Current Condition History of Current Condition Onset Date worsening 6 months ago Current Complaints LBP History of Current Condition Pt reports chronic LBP for a couple years where occ she tweaks it but it typically gets better and goes away relatively quickly. 6 months ago, pain started to get worse and is not going away. Pt reports her back felt out and couldn't stand and do stuff like she wants to and they updated furniture which has not made a big difference. Years ago, she fell off a stool to the ground and R side has been side that hurt. She has seen her chiropractor and has been still with short term relief. She did PT a while ago and he did a manipulation that did help her. 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 Has to move slowly to fully straighten up when getting up from chair. Pt reports mm relaxors were given and they only help her get to sleep but do not help w/ pain. Pt reports when she squats down, she cannot get up w/o something to hold onto. 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 Today she has some sorenss but not as bad as yesterday. She is unsure why. Herrick fine after last treatment. Has been compliant w/exercises. Notes pain in back w/hip flexor stretch and L leg back PT-OP-F Manual Assessment Start: 12/10/20 09:43 Freq: Status: Active Protocol: Document 12/11/20 08:21 [facility] (Rec: 12/11/20 09:01 [facility] [id number]) Manual Assessments Joint Mobility Assessment Joint Mobility Assessment R ijliac crest higher, equal greater trochanters, B femoral IR, neutral tibias PT-OP-G Mobility & Gait Start: 12/10/20 09:43 Freq: Status: Active Protocol: Document 12/11/20 08:21 [facility] (Rec: 12/11/20 09:01 [facility] [id number]) OP Gait Assessment Comments Gait Comments dec push off w/pelvis rotation , LLE adduction PT-OP-J Posture/Palpation/Skin Start: 12/10/20 09:43 Freq: Status: Active Protocol: Document 12/11/20 08:21 [facility] (Rec: 12/11/20 09:01 [facility] [id number]) Posture Evaluation Oc Postural Classification System Oc Postural Classifications Posterior/Anterior Vertebral Compression Test 0 Elbow Flexion Test 2 Lumbar Protective Mechanism Left AP 0 Lumbar Protective Mechanism Right AP 0 Lumbar Protective Mechanism Left PA 2 Lumbar Protective Mechanism Right PA 3 Leg Swing Left Hard End Feel,Limited Leg Swing Right Hard End Feel Comments Posture Comments knees lock, inc kyphosis, slight R pelvic shear PT-OP-K Range of Motion Start: 12/10/20 09:43 Freq: Status: Active Protocol: Document 12/11/20 08:21 [facility] (Rec: 12/11/20 09:01 [facility] [id number]) Lumbar Spine Range of Motion Lumbar Spine Active Degrees Flexion 49 Extension 5 Rotation Left 31 Rotation Right 45 Lateral Flexion Left 17 Lateral Flexion Right 20 Comments pain on R side w/R SB PT-OP-L Special Tests Start: 12/10/20 09:43 Freq: Status: Active Protocol: Document 12/11/20 08:21 [facility] (Rec: 12/11/20 09:01 [facility] [id number]) Special Tests Lumbar Spine Special Tests Straight Leg Raise Test Results 78 L,74 R no back pain HS tightness Slump Test Results neg B PT-OP-M Strength Start: 12/10/20 09:43 Freq: Status: Active Protocol: Document 12/11/20 08:21 [facility] (Rec: 12/11/20 09:01 [facility] [id number]) Hip Strength Hip Manual Muscle Testing Right Flexion (L2) 3 Fair Extension (S1) 3 Fair Abduction 4 Good External Rotation 3+ Fair+ Internal Rotation 4 Good Comments pain w/hip flex Left Extension (S1) 3 Fair Abduction 4 Good External Rotation 4 Good Internal Rotation 4 Good Knee Strength Knee Manual Muscle Testing Right Flexion (S2) 5 Normal Extension (L3) 5 Normal Left Flexion (S2) 5 Normal Extension (L3) 5 Normal Ankle/Foot Strength Ankle and Foot Manual Muscle Testing Right Dorsiflexion (L4) 5 Normal Plantarflexion (S1) 5 Normal Left Dorsiflexion (L4) 5 Normal Plantarflexion (S1) 5 Normal Comments seatd PF testing B PT-OP-Q Treatments Start: 12/10/20 09:43 Freq: Status: Active Protocol: Document 12/27/20 10:35 [facility] (Rec: 12/27/20 11:45 [facility] [id number]) Therapeutic Exercises Supine Exercises bridge Supine Exercise Name progressed to january focus on neutral spien Side bilateral Reps/Minutes 10 Standing Exercises squat Standing Exercise Name 1st set w/yard stick Side bilateral Reps/Minutes 2x12 hip hinge Standing Exercise Name did seated & standing Side bilateral Reps/Minutes 12 ea Comments w/yard stick on back Manual Therapy Treatment Soft Tissue Mobilization lumbar Body Location R>L ES Mobilization Type Rolling,Strumming Intensity/Depth Moderate Body Position Prone Comments prone Joint Mobilizations innominate Joint R Direction ER FM sacrum Joint caudal FM & SONA hip Direction R hip on axis ER FM B Self-Care/Home Management Treatment Education Other Education desk set up and edu re: set up for reaching activities to avoid pain PT-OP-R Modalities Start: 12/10/20 09:43 Freq: Status: Active Protocol: Document 12/24/20 09:47 [facility] (Rec: 12/24/20 10:32 [facility] [id number]) Hot Pack/Cold Pack Treatment Cold Pack Location lumbar Patient Position Prone Treatment Duration (minutes) 10 PT-OP-T Assessment and Plan Start: 12/10/20 09:43 Freq: Status: Active Protocol: Document 12/27/20 10:35 [facility] (Rec: 12/27/20 11:45 [facility] [id number]) Physical Therapy Assessment Goals posture Body Mechanic Goal (LTG) Pt will show improved posture w/improvement in score of VCT to at least 3/5 to imrpove core mm activiation & dec pain . LTG Duration 02/08/21 walking Short Term Goal (STG) pt will be able to walk .5 mile with no more than 2 point increase in pain. STG Duration 01/08/21 Body Mechanic Goal (LTG) Pt will be able to return to walking program and walk 2 miles without increased pain. LTG Duration 02/08/21 JEIMY Impairment 21/50 Short Term Goal (STG) Pt will improve JEIMY score to 15/50 to show improved functional ability. STG Duration 01/08/21 Body Mechanic Goal (LTG) Pt will improve JEIMY score to 5 /50 to show improved functional ability. LTG Duration 02/08/21 mobility Short Term Goal (STG) Pt will be able to do sit to stand from chair without increased pain and without difficulty. STG Duration 01/08/21 Half-Way Goal (LTG) Pt will be able to squat to ground and lift objects with good mechanics without difficulty or inc pain. LTG Duration 02/08/21 strength Body Mechanic Goal (LTG) Pt will score 3/5 LPM, 4/5 EFT & at least 4+/5 on all LE MMT to show improved strength and stability to allow pt to move more with less pain. LTG Duration 02/08/21 Assessment Summary Assessment Pt did well with exericses with min cuieng duiring hip hinges. She had imrpoved core stability duirng marching w/ bridges. After manual, pt had imrpoved R hip ER and no longer had pain w/hip flexor stretch. Physical Therapy Plan Frequency and Duration Frequency of Treatment 2x/Week Duration of Treatment 2 months Plan of Care Start Date 12/11/20 Plan of Care End Date 02/08/21 Next Visit Focus/Plan Next Note Type Treatment Note Next Visit Plan add some hip stretches for pt, progress core exercises as tolerated, manual for B hip mobility
--- NOTE | 2021-01-01 14:36 | PT.OTN ---
Current Diagnoses Other chronic pain (01/01/21) Low back pain (01/01/21) Difficulty in walking, not elsewhere classified (01/01/21) Abnormal posture (01/01/21) Weakness (01/01/21) Physical Therapy Treatment Note PT-OP-A Visit Information Start: 12/10/20 09:43 Freq: Status: Active Protocol: Document 01/01/21 14:31 [facility] (Rec: 01/01/21 14:36 [facility] [id number]) Out-Patient Physical Therapy Visit Information Visit Information Visit Type Treatment Note Visit Start Time 13:48 Visit Stop Time 14:29 Total Visit Minutes 41 Visit Number 6 Number of BRANCH STORE MANAGER Visits 0 PT-OP-B Current Condition Start: 12/10/20 09:43 Freq: Status: Active Protocol: Document 12/11/20 08:21 [facility] (Rec: 12/11/20 09:01 [facility] [id number]) Current Condition History of Current Condition Onset Date worsening 6 months ago Current Complaints LBP History of Current Condition Pt reports chronic LBP for a couple years where occ she tweaks it but it typically gets better and goes away relatively quickly. 6 months ago, pain started to get worse and is not going away. Pt reports her back felt out and couldn't stand and do stuff like she wants to and they updated furniture which has not made a big difference. Years ago, she fell off a stool to the ground and R side has been side that hurt. She has seen her chiropractor and has been still with short term relief. She did PT a while ago and he did a manipulation that did help her. 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 Has to move slowly to fully straighten up when getting up from chair. Pt reports mm relaxors were given and they only help her get to sleep but do not help w/ pain. Pt reports when she squats down, she cannot get up w/o something to hold onto. 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 Notes inc ease of getting out of car but still difficult w/up/dwonf rom chairs. Notes she slipped when at [facility] the other day. PT-OP-F Manual Assessment Start: 12/10/20 09:43 Freq: Status: Active Protocol: Document 12/11/20 08:21 [facility] (Rec: 12/11/20 09:01 [facility] [id number]) Manual Assessments Joint Mobility Assessment Joint Mobility Assessment R ijliac crest higher, equal greater trochanters, B femoral IR, neutral tibias PT-OP-G Mobility & Gait Start: 12/10/20 09:43 Freq: Status: Active Protocol: Document 12/11/20 08:21 [facility] (Rec: 12/11/20 09:01 [facility] [id number]) OP Gait Assessment Comments Gait Comments dec push off w/pelvis rotation , LLE adduction PT-OP-J Posture/Palpation/Skin Start: 12/10/20 09:43 Freq: Status: Active Protocol: Document 12/11/20 08:21 [facility] (Rec: 12/11/20 09:01 [facility] [id number]) Posture Evaluation Oc Postural Classification System Oc Postural Classifications Posterior/Anterior Vertebral Compression Test 0 Elbow Flexion Test 2 Lumbar Protective Mechanism Left AP 0 Lumbar Protective Mechanism Right AP 0 Lumbar Protective Mechanism Left PA 2 Lumbar Protective Mechanism Right PA 3 Leg Swing Left Hard End Feel,Limited Leg Swing Right Hard End Feel Comments Posture Comments knees lock, inc kyphosis, slight R pelvic shear PT-OP-K Range of Motion Start: 12/10/20 09:43 Freq: Status: Active Protocol: Document 12/11/20 08:21 [facility] (Rec: 12/11/20 09:01 [facility] [id number]) Lumbar Spine Range of Motion Lumbar Spine Active Degrees Flexion 49 Extension 5 Rotation Left 31 Rotation Right 45 Lateral Flexion Left 17 Lateral Flexion Right 20 Comments pain on R side w/R SB PT-OP-L Special Tests Start: 12/10/20 09:43 Freq: Status: Active Protocol: Document 12/11/20 08:21 [facility] (Rec: 12/11/20 09:01 [facility] [id number]) Special Tests Lumbar Spine Special Tests Straight Leg Raise Test Results 78 L,74 R no back pain HS tightness Slump Test Results neg B PT-OP-M Strength Start: 12/10/20 09:43 Freq: Status: Active Protocol: Document 12/11/20 08:21 [facility] (Rec: 12/11/20 09:01 [facility] [id number]) Hip Strength Hip Manual Muscle Testing Right Flexion (L2) 3 Fair Extension (S1) 3 Fair Abduction 4 Good External Rotation 3+ Fair+ Internal Rotation 4 Good Comments pain w/hip flex Left Extension (S1) 3 Fair Abduction 4 Good External Rotation 4 Good Internal Rotation 4 Good Knee Strength Knee Manual Muscle Testing Right Flexion (S2) 5 Normal Extension (L3) 5 Normal Left Flexion (S2) 5 Normal Extension (L3) 5 Normal Ankle/Foot Strength Ankle and Foot Manual Muscle Testing Right Dorsiflexion (L4) 5 Normal Plantarflexion (S1) 5 Normal Left Dorsiflexion (L4) 5 Normal Plantarflexion (S1) 5 Normal Comments seatd PF testing B PT-OP-Q Treatments Start: 12/10/20 09:43 Freq: Status: Active Protocol: Document 01/01/21 14:31 [facility] (Rec: 01/01/21 14:36 [facility] [id number]) Therapeutic Exercises Supine Exercises stretch Supine Exercise Name hip figure 4 Side right Reps/Minutes 30 sec Standing Exercises hip hikes Side bilateral Reps/Minutes 10 Comments rail at 4in step Gait Training Gait Activity walking Description focus on push off wt shifts Comments 1.fwd in mirror progressed to step through 2. fwd to SLS for wt acceptance Manual Therapy Treatment Soft Tissue Mobilization glutes Body Location B Glutes & Rpiriformis Mobilization Type Sustained Pressure Intensity/Depth Moderate Body Position Prone Comments w/hip ER/IR lumbar Body Location R>L ES & QL Mobilization Type Rolling,Strumming Intensity/Depth Moderate Body Position Prone Comments prone Joint Mobilizations innominate Joint R Direction ER FM sacrum Joint caudal FM & SONA hip Direction R hip on axis ER FM & R inf FM Self-Care/Home Management Treatment Education Other Education avoiding locking knees PT-OP-R Modalities Start: 12/10/20 09:43 Freq: Status: Active Protocol: Document 12/24/20 09:47 [facility] (Rec: 12/24/20 10:32 [facility] [id number]) Hot Pack/Cold Pack Treatment Cold Pack Location lumbar Patient Position Prone Treatment Duration (minutes) 10 PT-OP-T Assessment and Plan Start: 12/10/20 09:43 Freq: Status: Active Protocol: Document 01/01/21 14:31 [facility] (Rec: 01/01/21 14:36 [facility] [id number]) Physical Therapy Assessment Goals posture Shelter Goal (LTG) Pt will show improved posture w/improvement in score of VCT to at least 3/5 to imrpove core mm activiation & dec pain . LTG Duration 02/08/21 walking Short Term Goal (STG) pt will be able to walk .5 mile with no more than 2 point increase in pain. STG Duration 01/08/21 Smokehouse Operator Goal (LTG) Pt will be able to return to walking program and walk 2 miles without increased pain. LTG Duration 02/08/21 JEIMY Impairment 21/50 Short Term Goal (STG) Pt will improve JEIMY score to 15/50 to show improved functional ability. STG Duration 01/08/21 Shelter Goal (LTG) Pt will improve JEIMY score to 5 /50 to show improved functional ability. LTG Duration 02/08/21 mobility Short Term Goal (STG) Pt will be able to do sit to stand from chair without increased pain and without difficulty. STG Duration 01/08/21 Smokehouse Operator Goal (LTG) Pt will be able to squat to ground and lift objects with good mechanics without difficulty or inc pain. LTG Duration 02/08/21 strength Shelter Goal (LTG) Pt will score 3/5 LPM, 4/5 EFT & at least 4+/5 on all LE MMT to show improved strength and stability to allow pt to move more with less pain. LTG Duration 02/08/21 Assessment Summary Assessment Pt improved with gait w/cueing and work on wt shfit. Def showed dec stability on R side . Improved ER of R hip. Physical Therapy Plan Frequency and Duration Frequency of Treatment 2x/Week Duration of Treatment 2 months Plan of Care Start Date 12/11/20 Plan of Care End Date 02/08/21 Next Visit Focus/Plan Next Note Type Treatment Note Next Visit Plan add some hip stretches for pt, progress core exercises as tolerated, manual for B hip mobility
--- NOTE | 2021-01-07 09:04 | PT.OTN ---
Current Diagnoses Other chronic pain (01/07/21) Low back pain (01/07/21) Difficulty in walking, not elsewhere classified (01/07/21) Abnormal posture (01/07/21) Weakness (01/07/21) Physical Therapy Treatment Note PT-OP-A Visit Information Start: 12/10/20 09:43 Freq: Status: Active Protocol: Document 01/07/21 08:31 [facility] (Rec: 01/07/21 09:04 [facility] [id number]) Out-Patient Physical Therapy Visit Information Visit Information Visit Type Treatment Note Visit Start Time 08:18 Visit Stop Time 08:58 Total Visit Minutes 40 Visit Number 7 Number of MILL RECORDER Visits 0 PT-OP-B Current Condition Start: 12/10/20 09:43 Freq: Status: Active Protocol: Document 12/11/20 08:21 [facility] (Rec: 12/11/20 09:01 [facility] [id number]) Current Condition History of Current Condition Onset Date worsening 6 months ago Current Complaints LBP History of Current Condition Pt reports chronic LBP for a couple years where occ she tweaks it but it typically gets better and goes away relatively quickly. 6 months ago, pain started to get worse and is not going away. Pt reports her back felt out and couldn't stand and do stuff like she wants to and they updated furniture which has not made a big difference. Years ago, she fell off a stool to the ground and R side has been side that hurt. She has seen her chiropractor and has been still with short term relief. She did PT a while ago and he did a manipulation that did help her. 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 Has to move slowly to fully straighten up when getting up from chair. Pt reports mm relaxors were given and they only help her get to sleep but do not help w/ pain. Pt reports when she squats down, she cannot get up w/o something to hold onto. 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 (Rec: 01/07/21 09:04 [facility] [id number]) OP-PT Subjective Patient Comments Patient Comments Pt reports being on her feet when working a lot sat and was very sore. Noticed her clogs are more uncomfortABLE than sneakers and she leans fwd in car some. NOtes she is imrpovingw ith transitions for getting up Patient Reported Progress Improving PT-OP-F Manual Assessment Start: 12/10/20 09:43 Freq: Status: Active Protocol: Document 12/11/20 08:21 [facility] (Rec: 12/11/20 09:01 [facility] [id number]) Manual Assessments Joint Mobility Assessment Joint Mobility Assessment R ijliac crest higher, equal greater trochanters, B femoral IR, neutral tibias PT-OP-G Mobility & Gait Start: 12/10/20 09:43 Freq: Status: Active Protocol: Document 12/11/20 08:21 [facility] (Rec: 12/11/20 09:01 [facility] [id number]) OP Gait Assessment Comments Gait Comments dec push off w/pelvis rotation , LLE adduction PT-OP-J Posture/Palpation/Skin Start: 12/10/20 09:43 Freq: Status: Active Protocol: Document 12/11/20 08:21 [facility] (Rec: 12/11/20 09:01 [facility] [id number]) Posture Evaluation [facility] Postural Classification System Oc Postural Classifications Posterior/Anterior Vertebral Compression Test 0 Elbow Flexion Test 2 Lumbar Protective Mechanism Left AP 0 Lumbar Protective Mechanism Right AP 0 Lumbar Protective Mechanism Left PA 2 Lumbar Protective Mechanism Right PA 3 Leg Swing Left Hard End Feel,Limited Leg Swing Right Hard End Feel Comments Posture Comments knees lock, inc kyphosis, slight R pelvic shear PT-OP-K Range of Motion Start: 12/10/20 09:43 Freq: Status: Active Protocol: Document 12/11/20 08:21 [facility] (Rec: 12/11/20 09:01 [facility] [id number]) Lumbar Spine Range of Motion Lumbar Spine Active Degrees Flexion 49 Extension 5 Rotation Left 31 Rotation Right 45 Lateral Flexion Left 17 Lateral Flexion Right 20 Comments pain on R side w/R SB PT-OP-L Special Tests Start: 12/10/20 09:43 Freq: Status: Active Protocol: Document 12/11/20 08:21 [facility] (Rec: 12/11/20 09:01 [facility] [id number]) Special Tests Lumbar Spine Special Tests Straight Leg Raise Test Results 78 L,74 R no back pain HS tightness Slump Test Results neg B PT-OP-M Strength Start: 12/10/20 09:43 Freq: Status: Active Protocol: Document 12/11/20 08:21 [facility] (Rec: 12/11/20 09:01 [facility] [id number]) Hip Strength Hip Manual Muscle Testing Right Flexion (L2) 3 Fair Extension (S1) 3 Fair Abduction 4 Good External Rotation 3+ Fair+ Internal Rotation 4 Good Comments pain w/hip flex Left Extension (S1) 3 Fair Abduction 4 Good External Rotation 4 Good Internal Rotation 4 Good Knee Strength Knee Manual Muscle Testing Right Flexion (S2) 5 Normal Extension (L3) 5 Normal Left Flexion (S2) 5 Normal Extension (L3) 5 Normal Ankle/Foot Strength Ankle and Foot Manual Muscle Testing Right Dorsiflexion (L4) 5 Normal Plantarflexion (S1) 5 Normal Left Dorsiflexion (L4) 5 Normal Plantarflexion (S1) 5 Normal Comments seatd PF testing B PT-OP-Q Treatments Start: 12/10/20 09:43 Freq: Status: Active Protocol: Document 01/07/21 08:31 [facility] (Rec: 01/07/21 09:04 [facility] [id number]) Therapeutic Exercises Supine Exercises stretch Supine Exercise Name piriformis Side bilateral Reps/Minutes 30 sec ea Standing Exercises hip Standing Exercise Name 1. abd 2. ext Side bilateral Equipment Used L2 Reps/Minutes 10 ea side step Side bilateral Equipment Used L2 Reps/Minutes 20ftx2 hip hikes Side bilateral Reps/Minutes 10 Comments rail at 4in step Manual Therapy Treatment Soft Tissue Mobilization iliacus Body Location B iliacus Mobilization Type Sustained Pressure Intensity/Depth Moderate glutes Body Location R Glutes & R piriformis Mobilization Type Sustained Pressure Intensity/Depth Moderate Body Position Prone Comments w/hip ER/IR Self-Care/Home Management Treatment Education Other Education edu on support w/shoes and getting shoes with full foot coverage vs slip on for improved stability when standing, edu for adjusting seats like car seat for more support so less likely to lean fwd PT-OP-R Modalities Start: 12/10/20 09:43 Freq: Status: Active Protocol: Document 12/24/20 09:47 [facility] (Rec: 12/24/20 10:32 [facility] [id number]) Hot Pack/Cold Pack Treatment Cold Pack Location lumbar Patient Position Prone Treatment Duration (minutes) 10 PT-OP-T Assessment and Plan Start: 12/10/20 09:43 Freq: Status: Active Protocol: Document 01/07/21 08:31 [facility] (Rec: 01/07/21 09:04 [facility] [id number]) Physical Therapy Assessment Goals posture Longterm Goal (LTG) Pt will show improved posture w/improvement in score of VCT to at least 3/5 to imrpove core mm activiation & dec pain . LTG Duration 02/08/21 walking Short Term Goal (STG) pt will be able to walk .5 mile with no more than 2 point increase in pain. STG Duration 01/08/21 Longterm Goal (LTG) Pt will be able to return to walking program and walk 2 miles without increased pain. LTG Duration 02/08/21 JEIMY Impairment 21/50 Short Term Goal (STG) Pt will improve JEIMY score to 15/50 to show improved functional ability. STG Duration 01/08/21 Longterm Goal (LTG) Pt will improve JEIMY score to 5 /50 to show improved functional ability. LTG Duration 02/08/21 mobility Short Term Goal (STG) Pt will be able to do sit to stand from chair without increased pain and without difficulty. STG Duration 01/08/21 Longterm Goal (LTG) Pt will be able to squat to ground and lift objects with good mechanics without difficulty or inc pain. LTG Duration 02/08/21 strength Medical Parasitologist Goal (LTG) Pt will score 3/5 LPM, 4/5 EFT & at least 4+/5 on all LE MMT to show improved strength and stability to allow pt to move more with less pain. LTG Duration 02/08/21 Assessment Summary Assessment Pt was fatigued easiliy with glute exercises. She requried cued for posture and avoiding lat leaning throughout. Physical Therapy Plan Frequency and Duration Frequency of Treatment 2x/Week Duration of Treatment 2 months Plan of Care Start Date 12/11/20 Plan of Care End Date 02/08/21 Next Visit Focus/Plan Next Note Type Treatment Note Next Visit Plan progress core exercises &hip strength as tolerated, manual for B hip mobility
--- NOTE | 2021-01-10 08:17 | PT.OTN ---
Current Diagnoses Other chronic pain (01/10/21) Low back pain (01/10/21) Difficulty in walking, not elsewhere classified (01/10/21) Abnormal posture (01/10/21) Weakness (01/10/21) Physical Therapy Treatment Note PT-OP-A Visit Information Start: 12/10/20 09:43 Freq: Status: Active Protocol: Document 01/10/21 07:29 [facility] (Rec: 01/10/21 08:17 [facility] [id number]) Out-Patient Physical Therapy Visit Information Visit Information Visit Type Treatment Note Visit Start Time 07:32 Visit Stop Time 08:13 Total Visit Minutes 41 Visit Number 8 Number of FLEET SALES ASSOCIATE Visits 0 PT-OP-B Current Condition Start: 12/10/20 09:43 Freq: Status: Active Protocol: Document 12/11/20 08:21 [facility] (Rec: 12/11/20 09:01 [facility] [id number]) Current Condition History of Current Condition Onset Date worsening 6 months ago Current Complaints LBP History of Current Condition Pt reports chronic LBP for a couple years where occ she tweaks it but it typically gets better and goes away relatively quickly. 6 months ago, pain started to get worse and is not going away. Pt reports her back felt out and couldn't stand and do stuff like she wants to and they updated furniture which has not made a big difference. Years ago, she fell off a stool to the ground and R side has been side that hurt. She has seen her chiropractor and has been still with short term relief. She did PT a while ago and he did a manipulation that did help her. 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 Has to move slowly to fully straighten up when getting up from chair. Pt reports mm relaxors were given and they only help her get to sleep but do not help w/ pain. Pt reports when she squats down, she cannot get up w/o something to hold onto. 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, R achilles lengthening PT-OP-C Subjective Start: 12/10/20 09:43 Freq: Status: Active Protocol: Document 01/10/21 07:29 [facility] (Rec: 01/10/21 08:17 [facility] [id number]) OP-PT Subjective Patient Comments Patient Comments Pt reports she has on her bad shoes today Patient Reported Progress Improving PT-OP-F Manual Assessment Start: 12/10/20 09:43 Freq: Status: Active Protocol: Document 12/11/20 08:21 [facility] (Rec: 12/11/20 09:01 [facility] [id number]) Manual Assessments Joint Mobility Assessment Joint Mobility Assessment R ijliac crest higher, equal greater trochanters, B femoral IR, neutral tibias PT-OP-G Mobility & Gait Start: 12/10/20 09:43 Freq: Status: Active Protocol: Document 12/11/20 08:21 [facility] (Rec: 12/11/20 09:01 [facility] [id number]) OP Gait Assessment Comments Gait Comments dec push off w/pelvis rotation , LLE adduction PT-OP-J Posture/Palpation/Skin Start: 12/10/20 09:43 Freq: Status: Active Protocol: Document 12/11/20 08:21 [facility] (Rec: 12/11/20 09:01 [facility] [id number]) Posture Evaluation [facility] Postural Classification System Oc Postural Classifications Posterior/Anterior Vertebral Compression Test 0 Elbow Flexion Test 2 Lumbar Protective Mechanism Left AP 0 Lumbar Protective Mechanism Right AP 0 Lumbar Protective Mechanism Left PA 2 Lumbar Protective Mechanism Right PA 3 Leg Swing Left Hard End Feel,Limited Leg Swing Right Hard End Feel Comments Posture Comments knees lock, inc kyphosis, slight R pelvic shear PT-OP-K Range of Motion Start: 12/10/20 09:43 Freq: Status: Active Protocol: Document 12/11/20 08:21 [facility] (Rec: 12/11/20 09:01 [facility] [id number]) Lumbar Spine Range of Motion Lumbar Spine Active Degrees Flexion 49 Extension 5 Rotation Left 31 Rotation Right 45 Lateral Flexion Left 17 Lateral Flexion Right 20 Comments pain on R side w/R SB PT-OP-L Special Tests Start: 12/10/20 09:43 Freq: Status: Active Protocol: Document 12/11/20 08:21 [facility] (Rec: 12/11/20 09:01 [facility] [id number]) Special Tests Lumbar Spine Special Tests Straight Leg Raise Test Results 78 L,74 R no back pain HS tightness Slump Test Results neg B PT-OP-M Strength Start: 12/10/20 09:43 Freq: Status: Active Protocol: Document 12/11/20 08:21 [facility] (Rec: 12/11/20 09:01 [facility] [id number]) Hip Strength Hip Manual Muscle Testing Right Flexion (L2) 3 Fair Extension (S1) 3 Fair Abduction 4 Good External Rotation 3+ Fair+ Internal Rotation 4 Good Comments pain w/hip flex Left Extension (S1) 3 Fair Abduction 4 Good External Rotation 4 Good Internal Rotation 4 Good Knee Strength Knee Manual Muscle Testing Right Flexion (S2) 5 Normal Extension (L3) 5 Normal Left Flexion (S2) 5 Normal Extension (L3) 5 Normal Ankle/Foot Strength Ankle and Foot Manual Muscle Testing Right Dorsiflexion (L4) 5 Normal Plantarflexion (S1) 5 Normal Left Dorsiflexion (L4) 5 Normal Plantarflexion (S1) 5 Normal Comments seatd PF testing B PT-OP-Q Treatments Start: 12/10/20 09:43 Freq: Status: Active Protocol: Document 01/10/21 07:29 [facility] (Rec: 01/10/21 08:17 [facility] [id number]) Gym Equipment Sport Cord fwd Exercise Details in mirror focus on push off Reps/Duration 20 sidesteps Cord/Resistance green Reps/Duration 8 Therapeutic Exercises Standing Exercises lunges Side bilateral Reps/Minutes 12 squat Side bilateral Reps/Minutes 8 Manual Therapy Treatment Soft Tissue Mobilization lumbar Body Location R QL & obliques & sup border of iliac crest Mobilization Type Rolling,Strumming Intensity/Depth Moderate Body Position Sidelying Neuro Re-Education Treatment Other Activities core facilitation Details w/chop pattern to LLE PNF Details R ant elevation/post dep Comments 1. rythmic initiation 2. sustained isometrics progressed to w/LE patterns 3. COI of isotonics 4. concentric reversals w/LE patterns PT-OP-R Modalities Start: 12/10/20 09:43 Freq: Status: Active Protocol: Document 12/24/20 09:47 [facility] (Rec: 12/24/20 10:32 [facility] [id number]) Hot Pack/Cold Pack Treatment Cold Pack Location lumbar Patient Position Prone Treatment Duration (minutes) 10 PT-OP-T Assessment and Plan Start: 12/10/20 09:43 Freq: Status: Active Protocol: Document 01/10/21 07:29 [facility] (Rec: 01/10/21 08:17 [facility] [id number]) Physical Therapy Assessment Goals posture Civil Defense Director Goal (LTG) Pt will show improved posture w/improvement in score of VCT to at least 3/5 to imrpove core mm activiation & dec pain . LTG Duration 02/08/21 walking Short Term Goal (STG) pt will be able to walk .5 mile with no more than 2 point increase in pain. STG Duration 01/08/21 Alf Goal (LTG) Pt will be able to return to walking program and walk 2 miles without increased pain. LTG Duration 02/08/21 JEIMY Impairment 21/50 Short Term Goal (STG) Pt will improve JEIMY score to 15/50 to show improved functional ability. STG Duration 01/08/21 Alf Goal (LTG) Pt will improve JEIMY score to 5 /50 to show improved functional ability. LTG Duration 02/08/21 mobility Short Term Goal (STG) Pt will be able to do sit to stand from chair without increased pain and without difficulty. STG Duration 01/08/21 Alf Goal (LTG) Pt will be able to squat to ground and lift objects with good mechanics without difficulty or inc pain. LTG Duration 02/08/21 strength Civil Defense Director Goal (LTG) Pt will score 3/5 LPM, 4/5 EFT & at least 4+/5 on all LE MMT to show improved strength and stability to allow pt to move more with less pain. LTG Duration 02/08/21 Assessment Summary Assessment Pt improved with posture and psuh off with gait w/use of resistance. She fatigues with glutes w/exercises. Pt had imrpoved core repsonse after PNF. Physical Therapy Plan Frequency and Duration Frequency of Treatment 2x/Week Duration of Treatment 2 months Plan of Care Start Date 12/11/20 Plan of Care End Date 02/08/21 Next Visit Focus/Plan Next Note Type Treatment Note Next Visit Plan PNF B, core facilition & cont to work on glute sfor gait
--- NOTE | 2021-01-14 09:19 | PT.OTN ---
Current Diagnoses Other chronic pain (01/14/21) Low back pain (01/14/21) Difficulty in walking, not elsewhere classified (01/14/21) Abnormal posture (01/14/21) Weakness (01/14/21) Physical Therapy Treatment Note PT-OP-A Visit Information Start: 12/10/20 09:43 Freq: Status: Active Protocol: Document 01/14/21 09:11 [facility] (Rec: 01/14/21 09:19 [facility] [id number]) Out-Patient Physical Therapy Visit Information Visit Information Visit Type Treatment Note Visit Start Time 08:17 Visit Stop Time 09:00 Total Visit Minutes 43 Visit Number 9 Number of ROUNDHOUSE WORKER Visits 0 PT-OP-B Current Condition Start: 12/10/20 09:43 Freq: Status: Active Protocol: Document 12/11/20 08:21 [facility] (Rec: 12/11/20 09:01 [facility] [id number]) Current Condition History of Current Condition Onset Date worsening 6 months ago Current Complaints LBP History of Current Condition Pt reports chronic LBP for a couple years where occ she tweaks it but it typically gets better and goes away relatively quickly. 6 months ago, pain started to get worse and is not going away. Pt reports her back felt out and couldn't stand and do stuff like she wants to and they updated furniture which has not made a big difference. Years ago, she fell off a stool to the ground and R side has been side that hurt. She has seen her chiropractor and has been still with short term relief. She did PT a while ago and he did a manipulation that did help her. 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 Has to move slowly to fully straighten up when getting up from chair. Pt reports mm relaxors were given and they only help her get to sleep but do not help w/ pain. Pt reports when she squats down, she cannot get up w/o something to hold onto. 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 PT-OP-F Manual Assessment Start: 12/10/20 09:43 Freq: Status: Active Protocol: Document 12/11/20 08:21 [facility] (Rec: 12/11/20 09:01 [facility] [id number]) Manual Assessments Joint Mobility Assessment Joint Mobility Assessment R ijliac crest higher, equal greater trochanters, B femoral IR, neutral tibias PT-OP-G Mobility & Gait Start: 12/10/20 09:43 Freq: Status: Active Protocol: Document 12/11/20 08:21 [facility] (Rec: 12/11/20 09:01 [facility] [id number]) OP Gait Assessment Comments Gait Comments dec push off w/pelvis rotation , LLE adduction PT-OP-J Posture/Palpation/Skin Start: 12/10/20 09:43 Freq: Status: Active Protocol: Document 12/11/20 08:21 [facility] (Rec: 12/11/20 09:01 [facility] [id number]) Posture Evaluation [facility] Postural Classification System Oc Postural Classifications Posterior/Anterior Vertebral Compression Test 0 Elbow Flexion Test 2 Lumbar Protective Mechanism Left AP 0 Lumbar Protective Mechanism Right AP 0 Lumbar Protective Mechanism Left PA 2 Lumbar Protective Mechanism Right PA 3 Leg Swing Left Hard End Feel,Limited Leg Swing Right Hard End Feel Comments Posture Comments knees lock, inc kyphosis, slight R pelvic shear PT-OP-K Range of Motion Start: 12/10/20 09:43 Freq: Status: Active Protocol: Document 12/11/20 08:21 [facility] (Rec: 12/11/20 09:01 [facility] [id number]) Lumbar Spine Range of Motion Lumbar Spine Active Degrees Flexion 49 Extension 5 Rotation Left 31 Rotation Right 45 Lateral Flexion Left 17 Lateral Flexion Right 20 Comments pain on R side w/R SB PT-OP-L Special Tests Start: 12/10/20 09:43 Freq: Status: Active Protocol: Document 12/11/20 08:21 [facility] (Rec: 12/11/20 09:01 [facility] [id number]) Special Tests Lumbar Spine Special Tests Straight Leg Raise Test Results 78 L,74 R no back pain HS tightness Slump Test Results neg B PT-OP-M Strength Start: 12/10/20 09:43 Freq: Status: Active Protocol: Document 12/11/20 08:21 [facility] (Rec: 12/11/20 09:01 [facility] [id number]) Hip Strength Hip Manual Muscle Testing Right Flexion (L2) 3 Fair Extension (S1) 3 Fair Abduction 4 Good External Rotation 3+ Fair+ Internal Rotation 4 Good Comments pain w/hip flex Left Extension (S1) 3 Fair Abduction 4 Good External Rotation 4 Good Internal Rotation 4 Good Knee Strength Knee Manual Muscle Testing Right Flexion (S2) 5 Normal Extension (L3) 5 Normal Left Flexion (S2) 5 Normal Extension (L3) 5 Normal Ankle/Foot Strength Ankle and Foot Manual Muscle Testing Right Dorsiflexion (L4) 5 Normal Plantarflexion (S1) 5 Normal Left Dorsiflexion (L4) 5 Normal Plantarflexion (S1) 5 Normal Comments seatd PF testing B PT-OP-Q Treatments Start: 12/10/20 09:43 Freq: Status: Active Protocol: Document 01/14/21 09:11 [facility] (Rec: 01/14/21 09:19 [facility] [id number]) Therapeutic Exercises Sidelying Exercises basking seal Sidelying Exercise Name for post dep/ant elevation Side right Reps/Minutes 10 Standing Exercises stretch Standing Exercise Name 1. R QL SB stretch 2. emma pose at sink Reps/Minutes 30 sec ea Manual Therapy Treatment Soft Tissue Mobilization lumbar Body Location B QL & ES Mobilization Type Rolling,Strumming Intensity/Depth Moderate Body Position Sidelying Comments w/PNF motion AAROM Neuro Re-Education Treatment Other Activities PNF Details R ant elevation/post dep B Comments 1. rythmic initiation 2. sustained isometrics progressed to w/LE patterns 3. COI of isotonics progressed to w/LE patterns 4. concentric reversals w/LE patterns R PT-OP-R Modalities Start: 12/10/20 09:43 Freq: Status: Active Protocol: Document 12/24/20 09:47 [facility] (Rec: 12/24/20 10:32 [facility] [id number]) Hot Pack/Cold Pack Treatment Cold Pack Location lumbar Patient Position Prone Treatment Duration (minutes) 10 PT-OP-T Assessment and Plan Start: 12/10/20 09:43 Freq: Status: Active Protocol: Document 01/14/21 09:11 [facility] (Rec: 01/14/21 09:19 [facility] [id number]) Physical Therapy Assessment Goals posture Half-Way Goal (LTG) Pt will show improved posture w/improvement in score of VCT to at least 3/5 to imrpove core mm activiation & dec pain . LTG Duration 02/08/21 walking Short Term Goal (STG) pt will be able to walk .5 mile with no more than 2 point increase in pain. STG Duration 01/08/21 Half-Way Goal (LTG) Pt will be able to return to walking program and walk 2 miles without increased pain. LTG Duration 02/08/21 JEIMY Impairment 21/50 Short Term Goal (STG) Pt will improve JEIMY score to 15/50 to show improved functional ability. STG Duration 01/08/21 Half-Way Goal (LTG) Pt will improve JEIMY score to 5 /50 to show improved functional ability. LTG Duration 02/08/21 mobility Short Term Goal (STG) Pt will be able to do sit to stand from chair without increased pain and without difficulty. STG Duration 01/08/21 Half-Way Goal (LTG) Pt will be able to squat to ground and lift objects with good mechanics without difficulty or inc pain. LTG Duration 02/08/21 strength Half-Way Goal (LTG) Pt will score 3/5 LPM, 4/5 EFT & at least 4+/5 on all LE MMT to show improved strength and stability to allow pt to move more with less pain. LTG Duration 02/08/21 Assessment Summary Assessment Pt imrpovign with ext component of PNF w/better resistanec. She had veryl imited pelvic movement at start of session but that imrpoved with manual which allowed imrpoved PNF faciliation. Physical Therapy Plan Frequency and Duration Frequency of Treatment 2x/Week Duration of Treatment 2 months Plan of Care Start Date 12/11/20 Plan of Care End Date 02/08/21 Next Visit Focus/Plan Next Note Type Treatment Note Next Visit Plan PNF B, core facilition & cont to work on glutes for gait
--- NOTE | 2021-01-21 16:53 | PT.OTN ---
Current Diagnoses Other chronic pain (01/21/21) Low back pain (01/21/21) Difficulty in walking, not elsewhere classified (01/21/21) Abnormal posture (01/21/21) Weakness (01/21/21) Physical Therapy Treatment Note PT-OP-A Visit Information Start: 12/10/20 09:43 Freq: Status: Active Protocol: Document 01/21/21 16:05 MA (Rec: 01/21/21 16:53 MA [id number]) Out-Patient Physical Therapy Visit Information Visit Information Visit Type Treatment Note Visit Start Time 16:00 Visit Stop Time 16:43 Total Visit Minutes 43 Visit Number 10 Number of FUNDRAISING CONSULTANT Visits 1 PT-OP-B Current Condition Start: 12/10/20 09:43 Freq: Status: Active Protocol: Document 12/11/20 08:21 [facility] (Rec: 12/11/20 09:01 [facility] [id number]) Current Condition History of Current Condition Onset Date worsening 6 months ago Current Complaints LBP History of Current Condition Pt reports chronic LBP for a couple years where occ she tweaks it but it typically gets better and goes away relatively quickly. 6 months ago, pain started to get worse and is not going away. Pt reports her back felt out and couldn't stand and do stuff like she wants to and they updated furniture which has not made a big difference. Years ago, she fell off a stool to the ground and R side has been side that hurt. She has seen her chiropractor and has been still with short term relief. She did PT a while ago and he did a manipulation that did help her. 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 Has to move slowly to fully straighten up when getting up from chair. Pt reports mm relaxors were given and they only help her get to sleep but do not help w/ pain. Pt reports when she squats down, she cannot get up w/o something to hold onto. 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, R achilles lengthening PT-OP-C Subjective Start: 12/10/20 09:43 Freq: Status: Active Protocol: Document 01/21/21 16:05 MA (Rec: 01/21/21 16:53 MA [id number]) OP-PT Subjective Patient Comments Patient Comments Pt has been working for 7 days straight and has not been doing her HEP PT-OP-F Manual Assessment Start: 12/10/20 09:43 Freq: Status: Active Protocol: Document 12/11/20 08:21 [facility] (Rec: 12/11/20 09:01 [facility] [id number]) Manual Assessments Joint Mobility Assessment Joint Mobility Assessment R ijliac crest higher, equal greater trochanters, B femoral IR, neutral tibias PT-OP-G Mobility & Gait Start: 12/10/20 09:43 Freq: Status: Active Protocol: Document 12/11/20 08:21 [facility] (Rec: 12/11/20 09:01 [facility] [id number]) OP Gait Assessment Comments Gait Comments dec push off w/pelvis rotation , LLE adduction PT-OP-J Posture/Palpation/Skin Start: 12/10/20 09:43 Freq: Status: Active Protocol: Document 12/11/20 08:21 [facility] (Rec: 12/11/20 09:01 [facility] [id number]) Posture Evaluation [facility] Postural Classification System Oc Postural Classifications Posterior/Anterior Vertebral Compression Test 0 Elbow Flexion Test 2 Lumbar Protective Mechanism Left AP 0 Lumbar Protective Mechanism Right AP 0 Lumbar Protective Mechanism Left PA 2 Lumbar Protective Mechanism Right PA 3 Leg Swing Left Hard End Feel,Limited Leg Swing Right Hard End Feel Comments Posture Comments knees lock, inc kyphosis, slight R pelvic shear PT-OP-K Range of Motion Start: 12/10/20 09:43 Freq: Status: Active Protocol: Document 12/11/20 08:21 [facility] (Rec: 12/11/20 09:01 [facility] [id number]) Lumbar Spine Range of Motion Lumbar Spine Active Degrees Flexion 49 Extension 5 Rotation Left 31 Rotation Right 45 Lateral Flexion Left 17 Lateral Flexion Right 20 Comments pain on R side w/R SB PT-OP-L Special Tests Start: 12/10/20 09:43 Freq: Status: Active Protocol: Document 12/11/20 08:21 [facility] (Rec: 12/11/20 09:01 [facility] [id number]) Special Tests Lumbar Spine Special Tests Straight Leg Raise Test Results 78 L,74 R no back pain HS tightness Slump Test Results neg B PT-OP-M Strength Start: 12/10/20 09:43 Freq: Status: Active Protocol: Document 12/11/20 08:21 [facility] (Rec: 12/11/20 09:01 [facility] [id number]) Hip Strength Hip Manual Muscle Testing Right Flexion (L2) 3 Fair Extension (S1) 3 Fair Abduction 4 Good External Rotation 3+ Fair+ Internal Rotation 4 Good Comments pain w/hip flex Left Extension (S1) 3 Fair Abduction 4 Good External Rotation 4 Good Internal Rotation 4 Good Knee Strength Knee Manual Muscle Testing Right Flexion (S2) 5 Normal Extension (L3) 5 Normal Left Flexion (S2) 5 Normal Extension (L3) 5 Normal Ankle/Foot Strength Ankle and Foot Manual Muscle Testing Right Dorsiflexion (L4) 5 Normal Plantarflexion (S1) 5 Normal Left Dorsiflexion (L4) 5 Normal Plantarflexion (S1) 5 Normal Comments seatd PF testing B PT-OP-Q Treatments Start: 12/10/20 09:43 Freq: Status: Active Protocol: Document 01/21/21 16:05 MA (Rec: 01/21/21 16:53 MA [id number]) Therapeutic Exercises Supine Exercises stretch Supine Exercise Name passive HS stretch Side bilateral Reps/Minutes 2x60 sec LTR Supine Exercise Name focus on segmental control Side bilateral Reps/Minutes 8 bridge Side bilateral Reps/Minutes 10 pelvic tilt Reps/Minutes 8x 5 sec hold Prone Exercises ext Prone Exercise Name hip alt Side bilateral Reps/Minutes 10 Sidelying Exercises Clamshell Sidelying Exercise Name clamshell & reverse clamshell Reps/Minutes x10 basking seal Sidelying Exercise Name for post dep/ant elevation Side right Reps/Minutes 10 open book Side bilateral Reps/Minutes x8 Sitting Exercises Piriformis Stretch Reps/Minutes 60 seconds Standing Exercises stretch Standing Exercise Name 1. R QL SB stretch 2. emma pose with arms back Reps/Minutes 30 sec ea Manual Therapy Treatment Soft Tissue Mobilization lumbar Body Location B QL & ES Mobilization Type Rolling,Strumming Intensity/Depth Moderate Body Position Prone PT-OP-R Modalities Start: 12/10/20 09:43 Freq: Status: Active Protocol: Document 12/24/20 09:47 [facility] (Rec: 12/24/20 10:32 [facility] [id number]) Hot Pack/Cold Pack Treatment Cold Pack Location lumbar Patient Position Prone Treatment Duration (minutes) 10 PT-OP-T Assessment and Plan Start: 12/10/20 09:43 Freq: Status: Active Protocol: Document 01/21/21 16:05 MA (Rec: 01/21/21 16:53 MA [id number]) Physical Therapy Assessment Goals posture Fdc Goal (LTG) Pt will show improved posture w/improvement in score of VCT to at least 3/5 to imrpove core mm activiation & dec pain . LTG Duration 02/08/21 walking Short Term Goal (STG) pt will be able to walk .5 mile with no more than 2 point increase in pain. STG Duration 01/08/21 Fdc Goal (LTG) Pt will be able to return to walking program and walk 2 miles without increased pain. LTG Duration 02/08/21 JEIMY Impairment 21/50 Short Term Goal (STG) Pt will improve JEIMY score to 15/50 to show improved functional ability. STG Duration 01/08/21 Fdc Goal (LTG) Pt will improve JEIMY score to 5 /50 to show improved functional ability. LTG Duration 02/08/21 mobility Short Term Goal (STG) Pt will be able to do sit to stand from chair without increased pain and without difficulty. STG Duration 01/08/21 Fdc Goal (LTG) Pt will be able to squat to ground and lift objects with good mechanics without difficulty or inc pain. LTG Duration 02/08/21 strength Fur Cutter Goal (LTG) Pt will score 3/5 LPM, 4/5 EFT & at least 4+/5 on all LE MMT to show improved strength and stability to allow pt to move more with less pain. LTG Duration 02/08/21 Assessment Summary Assessment Pt feels her back pain has improved. She needs verbal cues to keep pelvis down during prone hip extension to avoid rolling. Her shoulder bothers her during child's pose so modified with forearms bent and head on forearms. Physical Therapy Plan Frequency and Duration Frequency of Treatment 2x/Week Duration of Treatment 2 months Plan of Care Start Date 12/11/20 Plan of Care End Date 02/08/21 Therapeutic Interventions Therapeutic Interventions Aquatic Therapy,Balance Training,Gait Training,Home Exercise Program,Joint Mobilizations,Manual Therapy, Neuromuscular Re-education, Patient/Caregiver Education, Self-Care/Home Management,Soft Tissue Mobilization,Taping, Therapeutic Activities, Therapeutic Exercises Modalities Cold Pack/Ice Massage,Electric Stimulation,Hot Packs, Traction- Mechanical, Ultrasound Next Visit Focus/Plan Next Note Type Treatment Note Next Visit Plan PNF B, core facilition & cont to work on glutes for gait
--- NOTE | 2021-01-24 08:17 | PT.OTN ---
Current Diagnoses Other chronic pain (01/24/21) Low back pain (01/24/21) Difficulty in walking, not elsewhere classified (01/24/21) Abnormal posture (01/24/21) Weakness (01/24/21) Physical Therapy Treatment Note PT-OP-A Visit Information Start: 12/10/20 09:43 Freq: Status: Active Protocol: Document 01/24/21 07:29 [facility] (Rec: 01/24/21 08:17 [facility] [id number]) Out-Patient Physical Therapy Visit Information Visit Information Visit Type Treatment Note Visit Start Time 07:31 Visit Stop Time 08:21 Total Visit Minutes 50 Visit Number 11 Number of LEADERSHIP RECRUITER Visits 0 PT-OP-B Current Condition Start: 12/10/20 09:43 Freq: Status: Active Protocol: Document 12/11/20 08:21 [facility] (Rec: 12/11/20 09:01 [facility] [id number]) Current Condition History of Current Condition Onset Date worsening 6 months ago Current Complaints LBP History of Current Condition Pt reports chronic LBP for a couple years where occ she tweaks it but it typically gets better and goes away relatively quickly. 6 months ago, pain started to get worse and is not going away. Pt reports her back felt out and couldn't stand and do stuff like she wants to and they updated furniture which has not made a big difference. Years ago, she fell off a stool to the ground and R side has been side that hurt. She has seen her chiropractor and has been still with short term relief. She did PT a while ago and he did a manipulation that did help her. 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 Has to move slowly to fully straighten up when getting up from chair. Pt reports mm relaxors were given and they only help her get to sleep but do not help w/ pain. Pt reports when she squats down, she cannot get up w/o something to hold onto. 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 (Rec: 01/24/21 08:17 [facility] [id number]) OP-PT Subjective Patient Comments Patient Comments pt reports working on posture at work but has not done exercises. She has been wearing more comfortable shoes . TOday back is sore. Hips doing okay PT-OP-F Manual Assessment Start: 12/10/20 09:43 Freq: Status: Active Protocol: Document 12/11/20 08:21 [facility] (Rec: 12/11/20 09:01 [facility] [id number]) Manual Assessments Joint Mobility Assessment Joint Mobility Assessment R ijliac crest higher, equal greater trochanters, B femoral IR, neutral tibias PT-OP-G Mobility & Gait Start: 12/10/20 09:43 Freq: Status: Active Protocol: Document 12/11/20 08:21 [facility] (Rec: 12/11/20 09:01 [facility] [id number]) OP Gait Assessment Comments Gait Comments dec push off w/pelvis rotation , LLE adduction PT-OP-J Posture/Palpation/Skin Start: 12/10/20 09:43 Freq: Status: Active Protocol: Document 12/11/20 08:21 [facility] (Rec: 12/11/20 09:01 [facility] [id number]) Posture Evaluation [facility] Postural Classification System Oc Postural Classifications Posterior/Anterior Vertebral Compression Test 0 Elbow Flexion Test 2 Lumbar Protective Mechanism Left AP 0 Lumbar Protective Mechanism Right AP 0 Lumbar Protective Mechanism Left PA 2 Lumbar Protective Mechanism Right PA 3 Leg Swing Left Hard End Feel,Limited Leg Swing Right Hard End Feel Comments Posture Comments knees lock, inc kyphosis, slight R pelvic shear PT-OP-K Range of Motion Start: 12/10/20 09:43 Freq: Status: Active Protocol: Document 12/11/20 08:21 [facility] (Rec: 12/11/20 09:01 [facility] [id number]) Lumbar Spine Range of Motion Lumbar Spine Active Degrees Flexion 49 Extension 5 Rotation Left 31 Rotation Right 45 Lateral Flexion Left 17 Lateral Flexion Right 20 Comments pain on R side w/R SB PT-OP-L Special Tests Start: 12/10/20 09:43 Freq: Status: Active Protocol: Document 12/11/20 08:21 [facility] (Rec: 12/11/20 09:01 [facility] [id number]) Special Tests Lumbar Spine Special Tests Straight Leg Raise Test Results 78 L,74 R no back pain HS tightness Slump Test Results neg B PT-OP-M Strength Start: 12/10/20 09:43 Freq: Status: Active Protocol: Document 12/11/20 08:21 [facility] (Rec: 12/11/20 09:01 [facility] [id number]) Hip Strength Hip Manual Muscle Testing Right Flexion (L2) 3 Fair Extension (S1) 3 Fair Abduction 4 Good External Rotation 3+ Fair+ Internal Rotation 4 Good Comments pain w/hip flex Left Extension (S1) 3 Fair Abduction 4 Good External Rotation 4 Good Internal Rotation 4 Good Knee Strength Knee Manual Muscle Testing Right Flexion (S2) 5 Normal Extension (L3) 5 Normal Left Flexion (S2) 5 Normal Extension (L3) 5 Normal Ankle/Foot Strength Ankle and Foot Manual Muscle Testing Right Dorsiflexion (L4) 5 Normal Plantarflexion (S1) 5 Normal Left Dorsiflexion (L4) 5 Normal Plantarflexion (S1) 5 Normal Comments seatd PF testing B PT-OP-Q Treatments Start: 12/10/20 09:43 Freq: Status: Active Protocol: Document 01/24/21 07:29 [facility] (Rec: 01/24/21 08:17 [facility] [id number]) Gym Equipment Shuttle Balance red clips Comments fwd: WBOS balance & wt shifts, NBOS Therapeutic Exercises Supine Exercises pelvic tilt Reps/Minutes 5x 5 sec hold hip iso Supine Exercise Name double leg Side bilateral Reps/Minutes 30 secx2 Standing Exercises stretch Standing Exercise Name 1. emma pose at counter 30 sec 2. 10x bottoms up Manual Therapy Treatment Soft Tissue Mobilization lumbar Body Location B QL & ES & sup to lat iliac crest Mobilization Type Rolling,Strumming Intensity/Depth Moderate Body Position Sidelying Comments w/PNF motion AAROM Joint Mobilizations innominate Direction ER FM R sacrum Joint R UPA FM PT-OP-R Modalities Start: 12/10/20 09:43 Freq: Status: Active Protocol: Document 01/24/21 07:29 [facility] (Rec: 01/24/21 08:17 [facility] [id number]) Hot Pack/Cold Pack Treatment Cold Pack Location lumbar Patient Position Prone Treatment Duration (minutes) 10 PT-OP-T Assessment and Plan Start: 12/10/20 09:43 Freq: Status: Active Protocol: Document 01/24/21 07:29 [facility] (Rec: 01/24/21 08:17 [facility] [id number]) Physical Therapy Assessment Goals posture Public Relations Director Goal (LTG) Pt will show improved posture w/improvement in score of VCT to at least 3/5 to imrpove core mm activiation & dec pain . LTG Duration 02/08/21 walking Short Term Goal (STG) pt will be able to walk .5 mile with no more than 2 point increase in pain. STG Duration 01/08/21 Public Relations Director Goal (LTG) Pt will be able to return to walking program and walk 2 miles without increased pain. LTG Duration 02/08/21 JEIMY Impairment 21/50 Short Term Goal (STG) Pt will improve JEIMY score to 15/50 to show improved functional ability. STG Duration 01/08/21 Public Relations Director Goal (LTG) Pt will improve JEIMY score to 5 /50 to show improved functional ability. LTG Duration 02/08/21 mobility Short Term Goal (STG) Pt will be able to do sit to stand from chair without increased pain and without difficulty. STG Duration 01/08/21 Public Relations Director Goal (LTG) Pt will be able to squat to ground and lift objects with good mechanics without difficulty or inc pain. LTG Duration 02/08/21 strength Snf Goal (LTG) Pt will score 3/5 LPM, 4/5 EFT & at least 4+/5 on all LE MMT to show improved strength and stability to allow pt to move more with less pain. LTG Duration 02/08/21 Assessment Summary Assessment Pt struggled on balance board and occ required HH on rail to balance. Reviewed exercises to work on at home as she can when really busy and discussed resuming core exercises this weekend. She had imrpoved post depression after manual treatment. Physical Therapy Plan Frequency and Duration Frequency of Treatment 2x/Week Duration of Treatment 2 months Plan of Care Start Date 12/11/20 Plan of Care End Date 02/08/21 Next Visit Focus/Plan Next Note Type Treatment Note Next Visit Plan PNF, core faciliation & cont to work on pelvis mobility
--- NOTE | 2021-01-28 08:18 | PT.OTN ---
Current Diagnoses Other chronic pain (01/28/21) Low back pain (01/28/21) Difficulty in walking, not elsewhere classified (01/28/21) Abnormal posture (01/28/21) Weakness (01/28/21) Physical Therapy Treatment Note PT-OP-A Visit Information Start: 12/10/20 09:43 Freq: Status: Active Protocol: Document 01/28/21 07:28 [facility] (Rec: 01/28/21 08:18 [facility] [id number]) Out-Patient Physical Therapy Visit Information Visit Information Visit Type Treatment Note Visit Start Time 07:45 Visit Stop Time 08:15 Total Visit Minutes 30 Visit Number 12 Number of TEACHING DIETITIAN Visits 0 PT-OP-B Current Condition Start: 12/10/20 09:43 Freq: Status: Active Protocol: Document 12/11/20 08:21 [facility] (Rec: 12/11/20 09:01 [facility] [id number]) Current Condition History of Current Condition Onset Date worsening 6 months ago Current Complaints LBP History of Current Condition Pt reports chronic LBP for a couple years where occ she tweaks it but it typically gets better and goes away relatively quickly. 6 months ago, pain started to get worse and is not going away. Pt reports her back felt out and couldn't stand and do stuff like she wants to and they updated furniture which has not made a big difference. Years ago, she fell off a stool to the ground and R side has been side that hurt. She has seen her chiropractor and has been still with short term relief. She did PT a while ago and he did a manipulation that did help her. 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 Has to move slowly to fully straighten up when getting up from chair. Pt reports mm relaxors were given and they only help her get to sleep but do not help w/ pain. Pt reports when she squats down, she cannot get up w/o something to hold onto. 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 Notes R hip just feels stiff. Back feels pretty good PT-OP-F Manual Assessment Start: 12/10/20 09:43 Freq: Status: Active Protocol: Document 12/11/20 08:21 [facility] (Rec: 12/11/20 09:01 [facility] [id number]) Manual Assessments Joint Mobility Assessment Joint Mobility Assessment R ijliac crest higher, equal greater trochanters, B femoral IR, neutral tibias PT-OP-G Mobility & Gait Start: 12/10/20 09:43 Freq: Status: Active Protocol: Document 12/11/20 08:21 [facility] (Rec: 12/11/20 09:01 [facility] [id number]) OP Gait Assessment Comments Gait Comments dec push off w/pelvis rotation , LLE adduction PT-OP-J Posture/Palpation/Skin Start: 12/10/20 09:43 Freq: Status: Active Protocol: Document 12/11/20 08:21 [facility] (Rec: 12/11/20 09:01 [facility] [id number]) Posture Evaluation [facility] Postural Classification System Oc Postural Classifications Posterior/Anterior Vertebral Compression Test 0 Elbow Flexion Test 2 Lumbar Protective Mechanism Left AP 0 Lumbar Protective Mechanism Right AP 0 Lumbar Protective Mechanism Left PA 2 Lumbar Protective Mechanism Right PA 3 Leg Swing Left Hard End Feel,Limited Leg Swing Right Hard End Feel Comments Posture Comments knees lock, inc kyphosis, slight R pelvic shear PT-OP-K Range of Motion Start: 12/10/20 09:43 Freq: Status: Active Protocol: Document 12/11/20 08:21 [facility] (Rec: 12/11/20 09:01 [facility] [id number]) Lumbar Spine Range of Motion Lumbar Spine Active Degrees Flexion 49 Extension 5 Rotation Left 31 Rotation Right 45 Lateral Flexion Left 17 Lateral Flexion Right 20 Comments pain on R side w/R SB PT-OP-L Special Tests Start: 12/10/20 09:43 Freq: Status: Active Protocol: Document 12/11/20 08:21 [facility] (Rec: 12/11/20 09:01 [facility] [id number]) Special Tests Lumbar Spine Special Tests Straight Leg Raise Test Results 78 L,74 R no back pain HS tightness Slump Test Results neg B PT-OP-M Strength Start: 12/10/20 09:43 Freq: Status: Active Protocol: Document 12/11/20 08:21 [facility] (Rec: 12/11/20 09:01 [facility] [id number]) Hip Strength Hip Manual Muscle Testing Right Flexion (L2) 3 Fair Extension (S1) 3 Fair Abduction 4 Good External Rotation 3+ Fair+ Internal Rotation 4 Good Comments pain w/hip flex Left Extension (S1) 3 Fair Abduction 4 Good External Rotation 4 Good Internal Rotation 4 Good Knee Strength Knee Manual Muscle Testing Right Flexion (S2) 5 Normal Extension (L3) 5 Normal Left Flexion (S2) 5 Normal Extension (L3) 5 Normal Ankle/Foot Strength Ankle and Foot Manual Muscle Testing Right Dorsiflexion (L4) 5 Normal Plantarflexion (S1) 5 Normal Left Dorsiflexion (L4) 5 Normal Plantarflexion (S1) 5 Normal Comments seatd PF testing B PT-OP-Q Treatments Start: 12/10/20 09:43 Freq: Status: Active Protocol: Document 01/28/21 07:28 [facility] (Rec: 01/28/21 08:18 [facility] [id number]) Manual Therapy Treatment Soft Tissue Mobilization iliacus Body Location B iliacus Mobilization Type Sustained Pressure Intensity/Depth Moderate Joint Mobilizations innominate Direction ER FM R sacrum Joint R UPA FM hip Direction R hip on axis ER FM & R inf FM Self-Care/Home Management Treatment Education Other Education review of stretches to do at work to keep hip mobile PT-OP-R Modalities Start: 12/10/20 09:43 Freq: Status: Active Protocol: Document 01/24/21 07:29 [facility] (Rec: 01/24/21 08:17 [facility] [id number]) Hot Pack/Cold Pack Treatment Cold Pack Location lumbar Patient Position Prone Treatment Duration (minutes) 10 PT-OP-T Assessment and Plan Start: 12/10/20 09:43 Freq: Status: Active Protocol: Document 01/28/21 07:28 [facility] (Rec: 01/28/21 08:18 [facility] [id number]) Physical Therapy Assessment Goals posture Nursing Home Goal (LTG) Pt will show improved posture w/improvement in score of VCT to at least 3/5 to imrpove core mm activiation & dec pain . LTG Duration 02/08/21 walking Short Term Goal (STG) pt will be able to walk .5 mile with no more than 2 point increase in pain. STG Duration 01/08/21 Nursing Home Goal (LTG) Pt will be able to return to walking program and walk 2 miles without increased pain. LTG Duration 02/08/21 JEIMY Impairment 21/50 Short Term Goal (STG) Pt will improve JEIMY score to 15/50 to show improved functional ability. STG Duration 01/08/21 Guest Relations Agent Goal (LTG) Pt will improve JEIMY score to 5 /50 to show improved functional ability. LTG Duration 02/08/21 mobility Short Term Goal (STG) Pt will be able to do sit to stand from chair without increased pain and without difficulty. STG Duration achieved 01/28 Nursing Home Goal (LTG) Pt will be able to squat to ground and lift objects with good mechanics without difficulty or inc pain. LTG Duration 02/08/21 strength Nursing Home Goal (LTG) Pt will score 3/5 LPM, 4/5 EFT & at least 4+/5 on all LE MMT to show improved strength and stability to allow pt to move more with less pain. LTG Duration 02/08/21 Assessment Summary Assessment Pt is overall doing better and is becoming more conscious of locking knees etc and working to avoid this. She had irmpoved hip range after manual treatment Physical Therapy Plan Frequency and Duration Frequency of Treatment 2x/Week Duration of Treatment 2 months Plan of Care Start Date 12/11/20 Plan of Care End Date 02/08/21 Next Visit Focus/Plan Next Note Type Progress Note Next Visit Plan PNF, core faciliation & cont to work on pelvis mobility
--- NOTE | 2021-01-30 17:07 | PT.OTN ---
Current Diagnoses Other chronic pain (01/30/21) Low back pain (01/30/21) Difficulty in walking, not elsewhere classified (01/30/21) Abnormal posture (01/30/21) Weakness (01/30/21) Physical Therapy Treatment Note PT-OP-A Visit Information Start: 12/10/20 09:43 Freq: Status: Active Protocol: Document 01/30/21 07:29 [facility] (Rec: 01/30/21 08:17 [facility] [id number]) Out-Patient Physical Therapy Visit Information Visit Information Visit Type Progress Note Visit Start Time 07:31 Visit Stop Time 08:13 Total Visit Minutes 42 Visit Number 13 Number of ADMINISTRATIVE JOB TITLES Visits 0 PT-OP-B Current Condition Start: 12/10/20 09:43 Freq: Status: Active Protocol: Document 12/11/20 08:21 [facility] (Rec: 12/11/20 09:01 [facility] [id number]) Current Condition History of Current Condition Onset Date worsening 6 months ago Current Complaints LBP History of Current Condition Pt reports chronic LBP for a couple years where occ she tweaks it but it typically gets better and goes away relatively quickly. 6 months ago, pain started to get worse and is not going away. Pt reports her back felt out and couldn't stand and do stuff like she wants to and they updated furniture which has not made a big difference. Years ago, she fell off a stool to the ground and R side has been side that hurt. She has seen her chiropractor and has been still with short term relief. She did PT a while ago and he did a manipulation that did help her. 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 Has to move slowly to fully straighten up when getting up from chair. Pt reports mm relaxors were given and they only help her get to sleep but do not help w/ pain. Pt reports when she squats down, she cannot get up w/o something to hold onto. 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 (Rec: 01/30/21 08:17 [facility] [id number]) OP-PT Subjective Patient Comments Patient Comments Pt reports she has been wokring on posutre. Has not had time for walking. Pt reports she had energy yesterday. No pain today PT-OP-F Manual Assessment Start: 12/10/20 09:43 Freq: Status: Active Protocol: Document 12/11/20 08:21 [facility] (Rec: 12/11/20 09:01 [facility] [id number]) Manual Assessments Joint Mobility Assessment Joint Mobility Assessment R ijliac crest higher, equal greater trochanters, B femoral IR, neutral tibias PT-OP-G Mobility & Gait Start: 12/10/20 09:43 Freq: Status: Active Protocol: Document 12/11/20 08:21 [facility] (Rec: 12/11/20 09:01 [facility] [id number]) OP Gait Assessment Comments Gait Comments dec push off w/pelvis rotation , LLE adduction PT-OP-J Posture/Palpation/Skin Start: 12/10/20 09:43 Freq: Status: Active Protocol: Document 01/30/21 07:29 [facility] (Rec: 01/30/21 08:17 [facility] [id number]) Posture Evaluation Oc Postural Classification System Oc Postural Classifications Posterior/Anterior Vertebral Compression Test 3 Elbow Flexion Test 3 Lumbar Protective Mechanism Left AP 3 Lumbar Protective Mechanism Right AP 3 Lumbar Protective Mechanism Left PA 2 Lumbar Protective Mechanism Right PA 2 PT-OP-K Range of Motion Start: 12/10/20 09:43 Freq: Status: Active Protocol: Document 12/11/20 08:21 [facility] (Rec: 12/11/20 09:01 [facility] [id number]) Lumbar Spine Range of Motion Lumbar Spine Active Degrees Flexion 49 Extension 5 Rotation Left 31 Rotation Right 45 Lateral Flexion Left 17 Lateral Flexion Right 20 Comments pain on R side w/R SB PT-OP-L Special Tests Start: 12/10/20 09:43 Freq: Status: Active Protocol: Document 12/11/20 08:21 [facility] (Rec: 12/11/20 09:01 [facility] [id number]) Special Tests Lumbar Spine Special Tests Straight Leg Raise Test Results 78 L,74 R no back pain HS tightness Slump Test Results neg B PT-OP-M Strength Start: 12/10/20 09:43 Freq: Status: Active Protocol: Document 01/30/21 07:29 [facility] (Rec: 01/30/21 08:17 [facility] [id number]) Hip Strength Hip Manual Muscle Testing Right Flexion (L2) 4 Good Extension (S1) 4 Good Abduction 4+ Good+ External Rotation 4+ Good+ Internal Rotation 5 Normal Left Flexion (L2) 4 Good Extension (S1) 4 Good Abduction 5 Normal External Rotation 5 Normal Internal Rotation 5 Normal Knee Strength Knee Manual Muscle Testing Right Flexion (S2) 5 Normal Extension (L3) 5 Normal Left Flexion (S2) 5 Normal Extension (L3) 5 Normal Ankle/Foot Strength Ankle and Foot Manual Muscle Testing Right Dorsiflexion (L4) 5 Normal Plantarflexion (S1) 5 Normal Left Dorsiflexion (L4) 5 Normal Plantarflexion (S1) 5 Normal Comments standing PF testing B PT-OP-Q Treatments Start: 12/10/20 09:43 Freq: Status: Active Protocol: Document 01/30/21 07:29 [facility] (Rec: 01/30/21 08:17 [facility] [id number]) Therapeutic Exercises Prone Exercises plank Prone Exercise Name forearm &feet Side bilateral Reps/Minutes 20 sec x2 Sidelying Exercises plank Sidelying Exercise Name on forearm and knees Side right Reps/Minutes 20sec ea Comments could not do left d/t pain Standing Exercises shoulder ext Standing Exercise Name core focus Side bilateral Equipment Used L1 Reps/Minutes 20 Other Exercises quadruped Other Exercise Name 1. alt arm flex 2. alt hip ext Side bilateral Reps/Minutes 12 ea Manual Therapy Treatment Soft Tissue Mobilization glutes Body Location R Glutes & R piriformis & ITB Mobilization Type Sustained Pressure Intensity/Depth Moderate Body Position Sidelying PT-OP-R Modalities Start: 12/10/20 09:43 Freq: Status: Active Protocol: Document 01/24/21 07:29 [facility] (Rec: 01/24/21 08:17 [facility] [id number]) Hot Pack/Cold Pack Treatment Cold Pack Location lumbar Patient Position Prone Treatment Duration (minutes) 10 PT-OP-T Assessment and Plan Start: 12/10/20 09:43 Freq: Status: Active Protocol: Document 01/30/21 07:29 [facility] (Rec: 01/30/21 08:17 [facility] [id number]) Physical Therapy Assessment Goals posture [facility] Goal (LTG) Pt will show improved posture w/improvement in score of VCT to at least 3/5 to imrpove core mm activiation & dec pain . LTG Duration achieved walking Short Term Goal (STG) pt will be able to walk .5 mile with no more than 2 point increase in pain. STG Duration achieved [facility] Goal (LTG) Pt will be able to return to walking program and walk 2 miles without increased pain. LTG Duration 04/01/21 JEIMY Impairment 21/50 Short Term Goal (STG) Pt will improve JEIMY score to 15/50 to show improved functional ability. 01/30-n/t d/t pt forgot to bring back paper STG Duration 02/08/21 [employer] Salesperson Goal (LTG) Pt will improve JEIMY score to 5 /50 to show improved functional ability. LTG Duration 04/01/21 mobility Short Term Goal (STG) Pt will be able to do sit to stand from chair without increased pain and without difficulty. STG Duration achieved 01/28 [facility] Goal (LTG) Pt will be able to squat to ground and lift objects with good mechanics without difficulty or inc pain. 01/30 min cues LTG Duration 03/29/21 strength [employer] Salesperson Goal (LTG) Pt will score 3/5 LPM, 4/5 EFT & at least 4+/5 on all LE MMT to show improved strength and stability to allow pt to move more with less pain. 01/30-improved LTG Duration 03/30/21 Assessment Summary Assessment Pt is making good progress with thearpy with dec pain, inc tolerance to standing, inc ability to go up/down without pain or weakness and improved core and LE strength. She still has occ B hip and back pain but it is improving and she cont to progress w/therapy to work on mechanics & stability. She would beneift from cont to work on these deficits. Physical Therapy Plan Frequency and Duration Frequency of Treatment 1-2x/Week Duration of Treatment 2 months Plan of Care Start Date 01/30/21 Plan of Care End Date 04/01/21 Therapeutic Interventions Therapeutic Interventions Aquatic Therapy,Balance Training,Gait Training,Home Exercise Program,Joint Mobilizations,Manual Therapy, Neuromuscular Re-education, Patient/Caregiver Education, Self-Care/Home Management,Soft Tissue Mobilization,Taping, Therapeutic Activities, Therapeutic Exercises Modalities Cold Pack/Ice Massage,Electric Stimulation,Hot Packs, Traction- Mechanical, Ultrasound Next Visit Focus/Plan Next Note Type Treatment Note Next Visit Plan PNF, core faciliation & cont to work on pelvis mobility
--- NOTE | 2021-01-30 17:07 | PT.OPPOC ---
Physical, Occupational & Speech Therapy At [facility] Current Diagnoses Other chronic pain (01/30/21) Low back pain (01/30/21) Difficulty in walking, not elsewhere classified (01/30/21) Abnormal posture (01/30/21) Weakness (01/30/21) Visit Care Team Role Provider Type Bj Wong MD Attending Provider Non-Staff Primary Care Provider Referring Provider Specialty: Medical Address: [address] [place] [address], [phone] Email: Plan Of Care PT-OP-T Assessment and Plan Start: 12/10/20 09:43 Freq: Status: Active Protocol: Document 01/30/21 07:29 [facility] (Rec: 01/30/21 08:17 [facility] [id number]) Physical Therapy Assessment Goals posture Electronic Warfare Linguist Goal (LTG) Pt will show improved posture w/improvement in score of VCT to at least 3/5 to imrpove core mm activiation & dec pain . LTG Duration achieved walking Short Term Goal (STG) pt will be able to walk .5 mile with no more than 2 point increase in pain. STG Duration achieved [facility] Goal (LTG) Pt will be able to return to walking program and walk 2 miles without increased pain. LTG Duration 04/01/21 JEIMY Impairment 21/50 Short Term Goal (STG) Pt will improve JEIMY score to 15/50 to show improved functional ability. 01/30-n/t d/t pt forgot to bring back paper STG Duration 02/08/21 Electronic Warfare Linguist Goal (LTG) Pt will improve JEIMY score to 5 /50 to show improved functional ability. LTG Duration 04/01/21 mobility Short Term Goal (STG) Pt will be able to do sit to stand from chair without increased pain and without difficulty. STG Duration achieved 01/28 Electronic Warfare Linguist Goal (LTG) Pt will be able to squat to ground and lift objects with good mechanics without difficulty or inc pain. 01/30 min cues LTG Duration 03/29/21 strength Electronic Warfare Linguist Goal (LTG) Pt will score 3/5 LPM, 4/5 EFT & at least 4+/5 on all LE MMT to show improved strength and stability to allow pt to move more with less pain. 01/30-improved LTG Duration 03/30/21 Assessment Summary Assessment Pt is making good progress with thearpy with dec pain, inc tolerance to standing, inc ability to go up/down without pain or weakness and improved core and LE strength. She still has occ B hip and back pain but it is improving and she cont to progress w/therapy to work on mechanics & stability. She would beneift from cont to work on these deficits. Physical Therapy Plan Frequency and Duration Frequency of Treatment 1-2x/Week Duration of Treatment 2 months Plan of Care Start Date 01/30/21 Plan of Care End Date 04/01/21 Therapeutic Interventions Therapeutic Interventions Aquatic Therapy,Balance Training,Gait Training,Home Exercise Program,Joint Mobilizations,Manual Therapy, Neuromuscular Re-education, Patient/Caregiver Education, Self-Care/Home Management,Soft Tissue Mobilization,Taping, Therapeutic Activities, Therapeutic Exercises Modalities Cold Pack/Ice Massage,Electric Stimulation,Hot Packs, Traction- Mechanical, Ultrasound Next Visit Focus/Plan Next Note Type Treatment Note Next Visit Plan PNF, core faciliation & cont to work on pelvis mobility Plan of Care Dates Plan of Care Start Date 01/30/21 Plan of Care End Date 04/01/21 Electronically Signed by: Leta Miller, PT 01/30/21 [id number] Please Sign and Return: I have reviewed this Plan of Care and certify that the skilled therapy services above are required to meet the patient?s needs. Physician Signature Date Printed Name and Credentials Clinical Instructor Signature Printed Name and Credentials
--- NOTE | 2021-02-07 09:07 | PT.OTN ---
Current Diagnoses Other chronic pain (02/07/21) Low back pain (02/07/21) Difficulty in walking, not elsewhere classified (02/07/21) Abnormal posture (02/07/21) Weakness (02/07/21) Physical Therapy Treatment Note PT-OP-A Visit Information Start: 12/10/20 09:43 Freq: Status: Active Protocol: Document 02/07/21 07:30 [facility] (Rec: 02/07/21 09:07 [facility] [id number]) Out-Patient Physical Therapy Visit Information Visit Information Visit Type Treatment Note Visit Start Time 07:30 Visit Stop Time 08:13 Total Visit Minutes 43 Visit Number 14 Number of MANAGER WEB Visits 0 PT-OP-B Current Condition Start: 12/10/20 09:43 Freq: Status: Active Protocol: Document 12/11/20 08:21 [facility] (Rec: 12/11/20 09:01 [facility] [id number]) Current Condition History of Current Condition Onset Date worsening 6 months ago Current Complaints LBP History of Current Condition Pt reports chronic LBP for a couple years where occ she tweaks it but it typically gets better and goes away relatively quickly. 6 months ago, pain started to get worse and is not going away. Pt reports her back felt out and couldn't stand and do stuff like she wants to and they updated furniture which has not made a big difference. Years ago, she fell off a stool to the ground and R side has been side that hurt. She has seen her chiropractor and has been still with short term relief. She did PT a while ago and he did a manipulation that did help her. 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 Has to move slowly to fully straighten up when getting up from chair. Pt reports mm relaxors were given and they only help her get to sleep but do not help w/ pain. Pt reports when she squats down, she cannot get up w/o something to hold onto. 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, R achilles lengthening PT-OP-C Subjective Start: 12/10/20 09:43 Freq: Status: Active Protocol: Document 02/07/21 07:30 [facility] (Rec: 02/07/21 09:07 [facility] [id number]) OP-PT Subjective Patient Comments Patient Comments reports this wk has been a bad one for pain PT-OP-F Manual Assessment Start: 12/10/20 09:43 Freq: Status: Active Protocol: Document 12/11/20 08:21 [facility] (Rec: 12/11/20 09:01 [facility] [id number]) Manual Assessments Joint Mobility Assessment Joint Mobility Assessment R ijliac crest higher, equal greater trochanters, B femoral IR, neutral tibias PT-OP-G Mobility & Gait Start: 12/10/20 09:43 Freq: Status: Active Protocol: Document 12/11/20 08:21 [facility] (Rec: 12/11/20 09:01 [facility] [id number]) OP Gait Assessment Comments Gait Comments dec push off w/pelvis rotation , LLE adduction PT-OP-J Posture/Palpation/Skin Start: 12/10/20 09:43 Freq: Status: Active Protocol: Document 01/30/21 07:29 [facility] (Rec: 01/30/21 08:17 [facility] [id number]) Posture Evaluation [facility] Postural Classification System Oc Postural Classifications Posterior/Anterior Vertebral Compression Test 3 Elbow Flexion Test 3 Lumbar Protective Mechanism Left AP 3 Lumbar Protective Mechanism Right AP 3 Lumbar Protective Mechanism Left PA 2 Lumbar Protective Mechanism Right PA 2 PT-OP-K Range of Motion Start: 12/10/20 09:43 Freq: Status: Active Protocol: Document 12/11/20 08:21 [facility] (Rec: 12/11/20 09:01 [facility] [id number]) Lumbar Spine Range of Motion Lumbar Spine Active Degrees Flexion 49 Extension 5 Rotation Left 31 Rotation Right 45 Lateral Flexion Left 17 Lateral Flexion Right 20 Comments pain on R side w/R SB PT-OP-L Special Tests Start: 12/10/20 09:43 Freq: Status: Active Protocol: Document 12/11/20 08:21 [facility] (Rec: 12/11/20 09:01 [facility] [id number]) Special Tests Lumbar Spine Special Tests Straight Leg Raise Test Results 78 L,74 R no back pain HS tightness Slump Test Results neg B PT-OP-M Strength Start: 12/10/20 09:43 Freq: Status: Active Protocol: Document 01/30/21 07:29 [facility] (Rec: 01/30/21 08:17 [facility] [id number]) Hip Strength Hip Manual Muscle Testing Right Flexion (L2) 4 Good Extension (S1) 4 Good Abduction 4+ Good+ External Rotation 4+ Good+ Internal Rotation 5 Normal Left Flexion (L2) 4 Good Extension (S1) 4 Good Abduction 5 Normal External Rotation 5 Normal Internal Rotation 5 Normal Knee Strength Knee Manual Muscle Testing Right Flexion (S2) 5 Normal Extension (L3) 5 Normal Left Flexion (S2) 5 Normal Extension (L3) 5 Normal Ankle/Foot Strength Ankle and Foot Manual Muscle Testing Right Dorsiflexion (L4) 5 Normal Plantarflexion (S1) 5 Normal Left Dorsiflexion (L4) 5 Normal Plantarflexion (S1) 5 Normal Comments standing PF testing B PT-OP-Q Treatments Start: 12/10/20 09:43 Freq: Status: Active Protocol: Document 02/07/21 07:30 [facility] (Rec: 02/07/21 09:07 [facility] [id number]) Therapeutic Exercises Other Exercises quadruped Other Exercise Name 1. alt arm flex 2. alt hip ext Side bilateral Reps/Minutes 12 ea Comments tactile cueing Therapeutic Activity Therapeutic Activity posture Comments 1.unsupporte sitting 2. standing positioning 3. facilitation of sit to stand Manual Therapy Treatment Soft Tissue Mobilization lumbar Body Location R QL & ES & sup to lat iliac crest Mobilization Type Rolling,Strumming Intensity/Depth Moderate Body Position Sidelying Comments w/PNF motion AAROM PT-OP-R Modalities Start: 12/10/20 09:43 Freq: Status: Active Protocol: Document 01/24/21 07:29 [facility] (Rec: 01/24/21 08:17 [facility] [id number]) Hot Pack/Cold Pack Treatment Cold Pack Location lumbar Patient Position Prone Treatment Duration (minutes) 10 PT-OP-T Assessment and Plan Start: 12/10/20 09:43 Freq: Status: Active Protocol: Document 02/07/21 07:30 [facility] (Rec: 02/07/21 09:07 [facility] [id number]) Physical Therapy Assessment Goals posture Intermediate Goal (LTG) Pt will show improved posture w/improvement in score of VCT to at least 3/5 to imrpove core mm activiation & dec pain . LTG Duration achieved walking Short Term Goal (STG) pt will be able to walk .5 mile with no more than 2 point increase in pain. STG Duration achieved Rn Orthopaedics Goal (LTG) Pt will be able to return to walking program and walk 2 miles without increased pain. LTG Duration 04/01/21 JEIMY Impairment Short Term Goal (STG) Pt will improve JEIMY score to 15/50 to show improved functional ability. 01/30-n/t d/t pt forgot to bring back paper STG Duration achieved Rn Orthopaedics Goal (LTG) Pt will improve JEIMY score to 5 /50 to show improved functional ability. 02/07- LTG Duration 04/01/21 mobility Short Term Goal (STG) Pt will be able to do sit to stand from chair without increased pain and without difficulty. STG Duration achieved 01/28 Rn Orthopaedics Goal (LTG) Pt will be able to squat to ground and lift objects with good mechanics without difficulty or inc pain. 01/30 min cues LTG Duration 03/29/21 strength Rn Orthopaedics Goal (LTG) Pt will score 3/5 LPM, 4/5 EFT & at least 4+/5 on all LE MMT to show improved strength and stability to allow pt to move more with less pain. 01/30-improved LTG Duration 03/30/21 Assessment Summary Assessment Pt reproted less painw hen in better postures but did feel weird in them. Shown why posture is important and how to add to her day. Tighter in R LB region today. Physical Therapy Plan Frequency and Duration Frequency of Treatment 1-2x/Week Duration of Treatment 2 months Plan of Care Start Date 01/30/21 Plan of Care End Date 04/01/21 Next Visit Focus/Plan Next Note Type Treatment Note Next Visit Plan PNF, core faciliation & cont to work on pelvis mobility
--- NOTE | 2021-03-04 13:20 | PT-OP ANOTE ---
Pt called re: no show of appt. Last scheduled appt which pt was informed of. Asked pt to call re: plan to cont vs DC.
--- NOTE | 2021-03-07 17:53 | PT.OPDS ---
Current Diagnoses Other chronic pain (02/07/21) Low back pain (02/07/21) Difficulty in walking, not elsewhere classified (02/07/21) Abnormal posture (02/07/21) Weakness (02/07/21) Visit Care Team Role Provider Type Bj Wong MD Attending Provider Non-Staff Primary Care Provider Referring Provider Specialty: Medical Address: [address] [place] [address], [phone] Email: Visit Number Visit Number 14 Discharge Summary PT-OP-B Current Condition Start: 12/10/20 09:43 Freq: Status: Active Protocol: Document 12/11/20 08:21 [facility] (Rec: 12/11/20 09:01 [facility] [id number]) Current Condition History of Current Condition Onset Date worsening 6 months ago Current Complaints LBP History of Current Condition Pt reports chronic LBP for a couple years where occ she tweaks it but it typically gets better and goes away relatively quickly. 6 months ago, pain started to get worse and is not going away. Pt reports her back felt out and couldn't stand and do stuff like she wants to and they updated furniture which has not made a big difference. Years ago, she fell off a stool to the ground and R side has been side that hurt. She has seen her chiropractor and has been still with short term relief. She did PT a while ago and he did a manipulation that did help her. 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 Has to move slowly to fully straighten up when getting up from chair. Pt reports mm relaxors were given and they only help her get to sleep but do not help w/ pain. Pt reports when she squats down, she cannot get up w/o something to hold onto. 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, R achilles lengthening PT-OP-C Subjective Start: 12/10/20 09:43 Freq: Status: Active Protocol: Document 02/07/21 07:30 [facility] (Rec: 02/07/21 09:07 [facility] [id number]) OP-PT Subjective Patient Comments Patient Comments reports this wk has been a bad one for pain PT-OP-F Manual Assessment Start: 12/10/20 09:43 Freq: Status: Active Protocol: Document 12/11/20 08:21 [facility] (Rec: 12/11/20 09:01 [facility] [id number]) Manual Assessments Joint Mobility Assessment Joint Mobility Assessment R ijliac crest higher, equal greater trochanters, B femoral IR, neutral tibias PT-OP-G Mobility & Gait Start: 12/10/20 09:43 Freq: Status: Active Protocol: Document 12/11/20 08:21 [facility] (Rec: 12/11/20 09:01 [facility] [id number]) OP Gait Assessment Comments Gait Comments dec push off w/pelvis rotation , LLE adduction PT-OP-J Posture/Palpation/Skin Start: 12/10/20 09:43 Freq: Status: Active Protocol: Document 01/30/21 07:29 [facility] (Rec: 01/30/21 08:17 [facility] [id number]) Posture Evaluation [facility] Postural Classification System Oc Postural Classifications Posterior/Anterior Vertebral Compression Test 3 Elbow Flexion Test 3 Lumbar Protective Mechanism Left AP 3 Lumbar Protective Mechanism Right AP 3 Lumbar Protective Mechanism Left PA 2 Lumbar Protective Mechanism Right PA 2 PT-OP-K Range of Motion Start: 12/10/20 09:43 Freq: Status: Active Protocol: Document 12/11/20 08:21 [facility] (Rec: 12/11/20 09:01 [facility] [id number]) Lumbar Spine Range of Motion Lumbar Spine Active Degrees Flexion 49 Extension 5 Rotation Left 31 Rotation Right 45 Lateral Flexion Left 17 Lateral Flexion Right 20 Comments pain on R side w/R SB PT-OP-L Special Tests Start: 12/10/20 09:43 Freq: Status: Active Protocol: Document 12/11/20 08:21 [facility] (Rec: 12/11/20 09:01 [facility] [id number]) Special Tests Lumbar Spine Special Tests Straight Leg Raise Test Results 78 L,74 R no back pain HS tightness Slump Test Results neg B PT-OP-M Strength Start: 12/10/20 09:43 Freq: Status: Active Protocol: Document 01/30/21 07:29 [facility] (Rec: 01/30/21 08:17 [facility] [id number]) Hip Strength Hip Manual Muscle Testing Right Flexion (L2) 4 Good Extension (S1) 4 Good Abduction 4+ Good+ External Rotation 4+ Good+ Internal Rotation 5 Normal Left Flexion (L2) 4 Good Extension (S1) 4 Good Abduction 5 Normal External Rotation 5 Normal Internal Rotation 5 Normal Knee Strength Knee Manual Muscle Testing Right Flexion (S2) 5 Normal Extension (L3) 5 Normal Left Flexion (S2) 5 Normal Extension (L3) 5 Normal Ankle/Foot Strength Ankle and Foot Manual Muscle Testing Right Dorsiflexion (L4) 5 Normal Plantarflexion (S1) 5 Normal Left Dorsiflexion (L4) 5 Normal Plantarflexion (S1) 5 Normal Comments standing PF testing B PT-OP-T Assessment and Plan Start: 12/10/20 09:43 Freq: Status: Active Protocol: Document 03/07/21 17:50 [facility] (Rec: 03/07/21 17:53 [facility] [id number]) Physical Therapy Assessment Goals posture Installation And Service Technician Goal (LTG) Pt will show improved posture w/improvement in score of VCT to at least 3/5 to imrpove core mm activiation & dec pain . LTG Duration achieved walking Short Term Goal (STG) pt will be able to walk .5 mile with no more than 2 point increase in pain. STG Duration achieved Alf Goal (LTG) Pt will be able to return to walking program and walk 2 miles without increased pain. LTG Duration 04/01/21 JEIMY Impairment 50 Short Term Goal (STG) Pt will improve JEIMY score to 15/50 to show improved functional ability. 01/30-n/t d/t pt forgot to bring back paper STG Duration achieved Installation And Service Technician Goal (LTG) Pt will improve JEIMY score to 5 /50 to show improved functional ability. 02/07- LTG Duration 04/01/21 mobility Short Term Goal (STG) Pt will be able to do sit to stand from chair without increased pain and without difficulty. STG Duration achieved 01/28 Installation And Service Technician Goal (LTG) Pt will be able to squat to ground and lift objects with good mechanics without difficulty or inc pain. 01/30 min cues LTG Duration 03/29/21 strength Alf Goal (LTG) Pt will score 3/5 LPM, 4/5 EFT & at least 4+/5 on all LE MMT to show improved strength and stability to allow pt to move more with less pain. 01/30-improved LTG Duration 03/30/21 Assessment Summary Assessment Pt no showed last appt d/t getting time wrong and when she arrived, she was unable to be seen. Pt felt ready for DC . She has made good progress and is doing well with HEP at last appointment. DC at this time.
== END 2021-03-15 09:45 | disposition home or self-care (01) ==
LOC: PHYS 07:30
PROVIDERS: PCP Family Medicine; Referring Provider Family Medicine; Visit Provider Family Medicine
DX: M54.5 Low back pain (principal); G89.29 Other chronic pain; R53.1 Weakness; R26.2 Difficulty in walking, not elsewhere classified; R29.3 Abnormal posture
CPT/HCPCS: 97010; 97110; 97112; 97116; 97140; 97162; 97530; 97535

== ENCOUNTER 2021-03-29 14:30 | Outpatient (RCR) | payer OTHER, BC, SELFPAY ==
--- NOTE | 2021-03-20 17:30 | PT.OPPOC ---
Physical, Occupational & Speech Therapy At [facility] Current Diagnoses Other chronic pain (03/20/21) Primary osteoarthritis, left shoulder (03/20/21) Pain in left shoulder (03/20/21) Impingement syndrome of left shoulder (03/20/21) Other enthesopathies, not elsewhere classified (03/20/21) Visit Care Team Role Provider Type Bj Wong MD Family Provider Non-Staff Primary Care Provider Specialty: Medical Address: [address] [place] [address], [phone] Email: Luc Carballo DO Attending Provider Non-Staff Referring Provider Specialty: Orthopedics Address: [address] [place] [address] [address], [place], [address] opt2 Email: Plan Of Care PT-OP-T Assessment and Plan Start: 03/20/21 17:35 Freq: Status: Active Protocol: Document 03/20/21 16:45 [facility] (Rec: 03/21/21 16:49 [facility] [id number]) Physical Therapy Assessment Rehab Potential Rehabilitation Potential Fair Evaluation Complexity Number of Personal Factors/Comorbidities 3 or More Number of Body Systems Impaired 1-2 Clinical Presentation at Evaluation Evolving Goals Three Impairment Pt unable to spend more than 2 hours working on her hobby of stained glass Half-Way Goal (LTG) Pt to tolerate a return to four hours working in her work room without needing to stop due to left shoulder pain. LTG Duration 05/20/21 Two Impairment Pt unable to carry more than one gallon of milk without left shoulder pain Monitor Car Operator Goal (LTG) Pt to demonstrate left shoulder MMT grossly 4/5 to improve ability to carry milk and lift objects off of the floor. LTG Duration 05/20/21 One Impairment Pt does not have an appropriate home exercise program Short Term Goal (STG) Pt to be independent and compliant with an appropriate HEP STG Duration 04/20/21 Assessment Summary Assessment Pt presents with signs and symptoms largely suggestive of a left labral derrangement, potentially a tear or sprain. Pt shows increased apprehension and weakness with shoulder instability, and she reports subjective complaints of her shoulder grinding and getting stuck, which may suggest a labral tear. Pt also has pain with palpation and elbow flexion in the LH Biceps tendon, which can also be affected by labral involvement. Pt displays increased protective spasming and tenderness at infraspinatus and subscapularis. Pt may benefit from skilled therapy focusing on increasing left shoulder strength and stability, but would also likely benefit from an MRI to rule in/out a labral tear vs sprain. Physical Therapy Plan Frequency and Duration Frequency of Treatment 2x/Week Duration of Treatment Two months Plan of Care Start Date 03/20/21 Plan of Care End Date 05/20/21 Therapeutic Interventions Therapeutic Interventions Home Exercise Program,Joint Mobilizations,Manual Therapy, Patient/Caregiver Education, Self-Care/Home Management,Soft Tissue Mobilization, Therapeutic Activities, Therapeutic Exercises Modalities Cold Pack/Ice Massage,Electric Stimulation,Hot Packs, Ultrasound Next Visit Focus/Plan Next Note Type Treatment Note Next Visit Plan Left shoulder TherEx for strength and stability, pain control modalities Plan of Care Dates Plan of Care Start Date 03/20/21 Plan of Care End Date 05/20/21 Electronically Signed by: Tomas Lamb, PT 03/21/21 [id number] Please Sign and Return: I have reviewed this Plan of Care and certify that the skilled therapy services above are required to meet the patient?s needs. Physician Signature Date Printed Name and Credentials Clinical Instructor Signature Printed Name and Credentials
--- NOTE | 2021-03-20 17:30 | PT.OIE ---
Current Diagnoses Other chronic pain (03/20/21) Primary osteoarthritis, left shoulder (03/20/21) Pain in left shoulder (03/20/21) Impingement syndrome of left shoulder (03/20/21) Other enthesopathies, not elsewhere classified (03/20/21) Past Medical History (Last Reviewed 06/04/20 @ 10:04 by Britney Laughlin DO) GERD (gastroesophageal reflux disease) Hypothyroid Visit Care Team Role Provider Type Bj Wong MD Family Provider Non-Staff Primary Care Provider Specialty: Medical Address: [address] [place] [address], [phone] Email: Luc Carballo DO Attending Provider Non-Staff Referring Provider Specialty: Orthopedics Address: [address] [place] [address] [address], [place], [address] opt2 Email: Physical Therapy Initial Evaluation PT-OP-A Visit Information Start: 03/20/21 17:35 Freq: Status: Active Protocol: Document 03/20/21 16:45 DCW (Rec: 03/20/21 17:44 DCW [id number]) Out-Patient Physical Therapy Visit Information Visit Information Visit Type Initial Evaluation Visit Start Time 16:45 Visit Stop Time 17:30 Total Visit Minutes 45 Visit Number 1 Number of JOY OPERATOR Visits 0 Evaluation Information Evaluation Date 03/20/21 PT-OP-B Current Condition Start: 03/20/21 17:35 Freq: Status: Active Protocol: Document 03/20/21 16:45 DCW (Rec: 03/20/21 17:44 DC [id number]) Current Condition History of Current Condition Onset Date One year Current Complaints Left shoulder pain, weakness History of Current Condition Pt is a 60 year old female presenting with a one year history of left shoulder pain. Pt notes that she had a right rotator cuff tear and repair ~4 years ago, but this one feels different. The rotator cuff tear really limited my motion, and this doesn't, it just hurts a lot and feels unstable. Pt did not have an traumatic injury to either shoulder, does not know what caused the pain. Pt's hobby is working with [employer], and she has had to limit her time in her work room because it starts to hurt if she spends more than two hours working. Pt currently unable to lift more than a gallon of milk, I can't even exercise it because any resistance hurts. Pt does note occasional feeling of her shoulder getting stuck and noting some grinding with movement. PT-OP-C Subjective Start: 03/20/21 17:35 Freq: Status: Active Protocol: Document 03/20/21 16:45 DCW (Rec: 03/20/21 17:44 DCW [id number]) OP-PT Subjective Patient Comments Patient Comments I've basically stopped doing anything that aggravates it. Patient Reported Progress Same Patient Questionnaires Quick Dash- Upper Extremity Quick Dash UE Score 52.27% Quick Dash UE Impairment 40 to 59% Impaired (Score 40- 59) OP-PT Pain Assessment Pain Assessment Grid Paper Pain Assessment Grid Completed Yes Location Left Shoulder Intensity 6 Scale Used Numeric (0 - 10) PT-OP-E Functional Tests Start: 03/20/21 17:35 Freq: Status: Active Protocol: Document 03/20/21 16:45 DCW (Rec: 03/20/21 17:47 DCW [id number]) Functional Tests Apley's Scratch Test Action 1- Left Posterior Opposite Shoulder Action 1- Right Posterior Opposite Shoulder Action 2- Left T4 Action 2- Right T4 Action 3- Left T6 Action 3- Right T10 PT-OP-F Manual Assessment Start: 03/20/21 17:35 Freq: Status: Active Protocol: Document 03/20/21 16:45 DCW (Rec: 03/20/21 17:47 DCW [id number]) Manual Assessments Soft Tissue Assessment Soft Tissue Mobility Assessment Hypertonia with tenderness to palpation 3/4: wincing and withdraw along left infraspinatus, subscapularis, LH biceps tendon Joint Mobility Assessment Joint Mobility Assessment Tenderness to palpation 3/4: wincing and withdraw with mobilization of left A/C joint PT-OP-K Range of Motion Start: 03/20/21 17:35 Freq: Status: Active Protocol: Document 03/20/21 16:45 DCW (Rec: 03/20/21 17:47 DCW [id number]) Shoulder Goniometric Range of Motion Shoulder Left Active Testing Position Sitting Flexion 180 Abduction 180 External Rotation at 0 degrees Abduction 40 PT-OP-L Special Tests Start: 03/20/21 17:35 Freq: Status: Active Protocol: Document 03/20/21 16:45 DCW (Rec: 03/20/21 17:51 [facility] [id number]) Special Tests Shoulder Special Tests Yerabram's Biceps Test Results Negative Speed's Biceps Test Results Positive left Passive ER Rotator Cuff Test Results Negative Lift-Off Rotator Cuff Test Results Negative Zaragoza Christoph Impingement Test Results Negative Grind Labrum Test Results Positive left Drop Arm Rotator Cuff Test Results Negative Clunk Test Test Results Positive left Biceps Load II Test Test Results Negative Belly Press Test Results Negative Apprehension Test Test Results Positive left AC Joint Compression Test Results Positive left PT-OP-M Strength Start: 03/20/21 17:35 Freq: Status: Active Protocol: Document 03/20/21 16:45 DCW (Rec: 03/20/21 17:51 [facility] [id number]) Shoulder Strength Shoulder Manual Muscle Testing Right Flexion 4+ Good+ Abduction (C5) 4+ Good+ External Rotation 4+ Good+ Internal Rotation 4+ Good+ Left Flexion 3+ Fair+ Abduction (C5) 3+ Fair+ External Rotation 2+ Poor+ Internal Rotation 4+ Good+ PT-OP-T Assessment and Plan Start: 03/20/21 17:35 Freq: Status: Active Protocol: Document 03/20/21 16:45 DCW (Rec: 03/21/21 16:49 DCW [id number]) Physical Therapy Assessment Rehab Potential Rehabilitation Potential Fair Evaluation Complexity Number of Personal Factors/Comorbidities 3 or More Number of Body Systems Impaired 1-2 Clinical Presentation at Evaluation Evolving Goals Three Impairment Pt unable to spend more than 2 hours working on her hobby of stained 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 LTG Duration 05/20/21 Two Impairment Pt unable to carry more than one gallon of milk without left shoulder pain Hand Presser Goal (LTG) Pt to demonstrate left shoulder MMT grossly 4/5 to improve ability to carry milk and lift objects off of the floor. LTG Duration 05/20/21 One Impairment Pt does not have an appropriate home exercise program Short Term Goal (STG) Pt to be independent and compliant with an appropriate HEP STG Duration 04/20/21 Assessment Summary Assessment Pt presents with signs and symptoms largely suggestive of a left labral derrangement, potentially a tear or sprain. Pt shows increased apprehension and weakness with shoulder instability, and she reports subjective complaints of her shoulder grinding and getting stuck, which may suggest a labral tear. Pt also has pain with palpation and elbow flexion in the LH Biceps tendon, which can also be affected by labral involvement. Pt displays increased protective spasming and tenderness at infraspinatus and subscapularis. Pt may benefit from skilled therapy focusing on increasing left shoulder strength and stability, but would also likely benefit from an MRI to rule in/out a labral tear vs sprain. Physical Therapy Plan Frequency and Duration Frequency of Treatment 2x/Week Duration of Treatment Two months Plan of Care Start Date 03/20/21 Plan of Care End Date 05/20/21 Therapeutic Interventions Therapeutic Interventions Home Exercise Program,Joint Mobilizations,Manual Therapy, Patient/Caregiver Education, Self-Care/Home Management,Soft Tissue Mobilization, Therapeutic Activities, Therapeutic Exercises Modalities Cold Pack/Ice Massage,Electric Stimulation,Hot Packs, Ultrasound Next Visit Focus/Plan Next Note Type Treatment Note Next Visit Plan Left shoulder TherEx for strength and stability, pain control modalities
--- NOTE | 2021-03-29 15:45 | PT.OTN ---
Current Diagnoses Other chronic pain (03/29/21) Primary osteoarthritis, left shoulder (03/29/21) Pain in left shoulder (03/29/21) Impingement syndrome of left shoulder (03/29/21) Other enthesopathies, not elsewhere classified (03/29/21) Physical Therapy Treatment Note PT-OP-A Visit Information Start: 03/20/21 17:35 Freq: Status: Active Protocol: Document 03/29/21 14:36 SP (Rec: 03/29/21 16:19 SP [id number]) Out-Patient Physical Therapy Visit Information Visit Information Visit Type Treatment Note Visit Start Time 14:33 Visit Stop Time 15:45 Total Visit Minutes 73 Visit Number 2 Number of MRI MANAGER Visits 1 Evaluation Information Evaluation Date 03/20/21 PT-OP-B Current Condition Start: 03/20/21 17:35 Freq: Status: Active Protocol: Document 03/20/21 16:45 DCW (Rec: 03/20/21 17:44 DCW [id number]) Current Condition History of Current Condition Onset Date One year Current Complaints Left shoulder pain, weakness History of Current Condition Pt is a 60 year old female presenting with a one year history of left shoulder pain. Pt notes that she had a right rotator cuff tear and repair ~4 years ago, but this one feels different. The rotator cuff tear really limited my motion, and this doesn't, it just hurts a lot and feels unstable. Pt did not have an traumatic injury to either shoulder, does not know what caused the pain. 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 Pt currently unable to lift more than a gallon of milk, I can't even exercise it because any resistance hurts. Pt does note occasional feeling of her shoulder getting stuck and noting some grinding with movement. PT-OP-C Subjective Start: 03/20/21 17:35 Freq: Status: Active Protocol: Document 03/29/21 14:36 SP (Rec: 03/29/21 16:19 SP [id number]) OP-PT Subjective Patient Comments Patient Comments Pt reported was sore after last appt but knew had to assess many things. Pt stated since last tx her insurance has changed and not able to afford continue PT so would like a progressive HEP to work on her own. Is still working on [facility] referral for an MRI of her L shld for further assessment. PT-OP-E Functional Tests Start: 03/20/21 17:35 Freq: Status: Active Protocol: Document 03/20/21 16:45 DCW (Rec: 03/20/21 17:47 DCW [id number]) Functional Tests Apley's Scratch Test Action 1- Left Posterior Opposite Shoulder Action 1- Right Posterior Opposite Shoulder Action 2- Left T4 Action 2- Right T4 Action 3- Left T6 Action 3- Right T10 PT-OP-F Manual Assessment Start: 03/20/21 17:35 Freq: Status: Active Protocol: Document 03/20/21 16:45 DCW (Rec: 03/20/21 17:47 DCW [id number]) Manual Assessments Soft Tissue Assessment Soft Tissue Mobility Assessment Hypertonia with tenderness to palpation 3/4: wincing and withdraw along left infraspinatus, subscapularis, LH biceps tendon Joint Mobility Assessment Joint Mobility Assessment Tenderness to palpation 3/4: wincing and withdraw with mobilization of left A/C joint PT-OP-K Range of Motion Start: 03/20/21 17:35 Freq: Status: Active Protocol: Document 03/20/21 16:45 DCW (Rec: 03/20/21 17:47 DCW [id number]) Shoulder Goniometric Range of Motion Shoulder Left Active Testing Position Sitting Flexion 180 Abduction 180 External Rotation at 0 degrees Abduction 40 PT-OP-L Special Tests Start: 03/20/21 17:35 Freq: Status: Active Protocol: Document 03/20/21 16:45 DCW (Rec: 03/20/21 17:51 DCW [id number]) Special Tests Shoulder Special Tests Yergason's Biceps Test Results Negative Speed's Biceps Test Results Positive left Passive ER Rotator Cuff Test Results Negative Lift-Off Rotator Cuff Test Results Negative Zaragoza Christoph Impingement Test Results Negative Grind Labrum Test Results Positive left Drop Arm Rotator Cuff Test Results Negative Clunk Test Test Results Positive left Biceps Load II Test Test Results Negative Belly Press Test Results Negative Apprehension Test Test Results Positive left AC Joint Compression Test Results Positive left PT-OP-M Strength Start: 03/20/21 17:35 Freq: Status: Active Protocol: Document 03/20/21 16:45 DCW (Rec: 03/20/21 17:51 DCW [id number]) Shoulder Strength Shoulder Manual Muscle Testing Right Flexion 4+ Good+ Abduction (C5) 4+ Good+ External Rotation 4+ Good+ Internal Rotation 4+ Good+ Left Flexion 3+ Fair+ Abduction (C5) 3+ Fair+ External Rotation 2+ Poor+ Internal Rotation 4+ Good+ PT-OP-Q Treatments Start: 03/20/21 17:35 Freq: Status: Active Protocol: Document 03/29/21 14:36 SP (Rec: 03/29/21 16:19 SP [id number]) Therapeutic Exercises Supine Exercises supine ABCs Side left Equipment Used #1 DB Reps/Minutes a-z x2 sets Comments pain free but tiring. Sidelying Exercises L shld abd Sidelying Exercise Name < 90 deg Side left Reps/Minutes x3 Comments painful >90 deg. Instructed painfree range, later canadd ABCs at this range shld ER Sidelying Exercise Name initiated HEP Side left Resistance AROM Equipment Used towel roll under arm Reps/Minutes x6 Comments pain free ROM open book Sidelying Exercise Name initiated HEP Side left Resistance AROM Equipment Used hand on head, head looking at arm movement Reps/Minutes 2x5 Comments good scap ROM and TS rotation movement pain free Sitting Exercises Stretching Sitting Exercise Name UT, lev scap Side left Reps/Minutes 30 x2 each Comments pain free range and gentle over pressure tolerance Standing Exercises L shld isometrics Standing Exercise Name flex, IR, ER, ext, abd long arm Side left Reps/Minutes 5 sec hold x5 each for now Comments cued x1 for scap stab with good carryover self corrections Other Exercises self STMs Other Exercise Name thercane to interscapula musculature, theracane to UT, lev scap, post CS Reps/Minutes 5 min Comments pressure to tolerance Therapeutic Activity Therapeutic Activity progressive HEP Reps/Minutes start 5 reps and 1 set then can progress and delete easy ex as progress Manual Therapy Treatment Soft Tissue Mobilization Manual L scap PNF Body Location L shld scap complex Mobilization Type Other Body Position Sidelying Comments manual scap retract/ depress> self> and eccentric against pressure STMS neck/ shld Body Location L UT, lev scap, pec, distal infraspinatus, subocc release Mobilization Type Strumming,Sustained Pressure, Other Intensity/Depth Moderate Body Position Supine Comments manual then MWM head nod/ turns> instructed self with tennis ball at wall and theracane MWM scap complex musculature and neck. - good understanding of all education and when to progress pain free range and tolerance. Self-Care/Home Management Treatment Education Patient Education Body Mechanics,Home Exercise Program,Pain Management, Posture,Safety Other Education See hand outs scanned in for L UE progressive HEP to continue on own: ROM and stretching>isometric> wall slides> theraband> weight bearing activities> over head activities then progress weight tolerated. 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 LTG Duration 05/20/21 Two Impairment Pt unable to carry more than one gallon of milk without left shoulder pain Intermediate Goal (LTG) Pt to demonstrate left shoulder MMT grossly 4/5 to improve ability to carry milk and lift objects off of the floor. LTG Duration 05/20/21 One Impairment Pt does not have an appropriate home exercise program Short Term Goal (STG) Pt to be independent and compliant with an appropriate HEP STG Duration 04/20/21 Assessment Summary Assessment Pt reported this will be her last appt due to insurance changes and wanting a progressive HEP to do on own while waiting for MRI and what POC will be going forward. Pt tolerated manual w/ good demonstration of instructed self STMs and performance of initiated scap retraction/ supine ABC/shld ER on side/ open book with no adverse reaction during or post tx. Pt has good understanding of progressive HEP and when to introduce if tolerant, see hand outs scanned in. Pt demonstrated good scap stab self corrections during open book, supine ABCs, shld ER with humeral depression awareness and standing isometrics. Physical Therapy Plan Frequency and Duration Frequency of Treatment 2x/Week Duration of Treatment Two months Plan of Care Start Date 03/20/21 Plan of Care End Date 05/20/21 Therapeutic Interventions Therapeutic Interventions Home Exercise Program,Joint Mobilizations,Manual Therapy, Patient/Caregiver Education, Self-Care/Home Management,Soft Tissue Mobilization, Therapeutic Activities, Therapeutic Exercises Modalities Cold Pack/Ice Massage,Electric Stimulation,Hot Packs, Ultrasound Discharge Physical Therapy Discharge Reasons Patient Request Discharge Comments Pt requested to be DC'd due to insurance changes. Is still working on getting a referral for an MRI of L shld. Next Visit Focus/Plan Next Note Type Treatment Note Next Visit Plan PT to complete DC.
--- NOTE | 2021-04-01 09:42 | PT.OPDS ---
Current Diagnoses Other chronic pain (03/29/21) Primary osteoarthritis, left shoulder (03/29/21) Pain in left shoulder (03/29/21) Impingement syndrome of left shoulder (03/29/21) Other enthesopathies, not elsewhere classified (03/29/21) Visit Care Team Role Provider Type Bj Wong MD Family Provider Non-Staff Primary Care Provider Specialty: Medical Address: [address] [place] [address], [phone] Email: Luc Carballo DO Attending Provider Non-Staff Referring Provider Specialty: Orthopedics Address: [address] [place] [address] [address], [place], [address] opt2 Email: Visit Number Visit Number 2 Discharge Summary PT-OP-B Current Condition Start: 03/20/21 17:35 Freq: Status: Active Protocol: Document 03/20/21 16:45 DCW (Rec: 03/20/21 17:44 DCW [id number]) Current Condition History of Current Condition Onset Date One year Current Complaints Left shoulder pain, weakness History of Current Condition Pt is a 60 year old female presenting with a one year history of left shoulder pain. Pt notes that she had a right rotator cuff tear and repair ~4 years ago, but this one feels different. The rotator cuff tear really limited my motion, and this doesn't, it just hurts a lot and feels unstable. Pt did not have an traumatic injury to either shoulder, does not know what caused the pain. 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 Pt currently unable to lift more than a gallon of milk, I can't even exercise it because any resistance hurts. Pt does note occasional feeling of her shoulder getting stuck and noting some grinding with movement. PT-OP-C Subjective Start: 03/20/21 17:35 Freq: Status: Active Protocol: Document 03/29/21 14:36 SP (Rec: 03/29/21 16:19 SP [id number]) OP-PT Subjective Patient Comments Patient Comments Pt reported was sore after last appt but knew had to assess many things. Pt stated since last tx her insurance has changed and not able to afford continue PT so would like a progressive HEP to work on her own. Is still working on [facility] referral for an MRI of her L shld for further assessment. PT-OP-E Functional Tests Start: 03/20/21 17:35 Freq: Status: Active Protocol: Document 03/20/21 16:45 DCW (Rec: 03/20/21 17:47 DCW [id number]) Functional Tests Apley's Scratch Test Action 1- Left Posterior Opposite Shoulder Action 1- Right Posterior Opposite Shoulder Action 2- Left T4 Action 2- Right T4 Action 3- Left T6 Action 3- Right T10 PT-OP-F Manual Assessment Start: 03/20/21 17:35 Freq: Status: Active Protocol: Document 03/20/21 16:45 DCW (Rec: 03/20/21 17:47 DCW [id number]) Manual Assessments Soft Tissue Assessment Soft Tissue Mobility Assessment Hypertonia with tenderness to palpation 3/4: wincing and withdraw along left infraspinatus, subscapularis, LH biceps tendon Joint Mobility Assessment Joint Mobility Assessment Tenderness to palpation 3/4: wincing and withdraw with mobilization of left A/C joint PT-OP-K Range of Motion Start: 03/20/21 17:35 Freq: Status: Active Protocol: Document 03/20/21 16:45 DCW (Rec: 03/20/21 17:47 DCW [id number]) Shoulder Goniometric Range of Motion Shoulder Left Active Testing Position Sitting Flexion 180 Abduction 180 External Rotation at 0 degrees Abduction 40 PT-OP-L Special Tests Start: 03/20/21 17:35 Freq: Status: Active Protocol: Document 03/20/21 16:45 DCW (Rec: 03/20/21 17:51 DCW [id number]) Special Tests Shoulder Special Tests Yergason's Biceps Test Results Negative Speed's Biceps Test Results Positive left Passive ER Rotator Cuff Test Results Negative Lift-Off Rotator Cuff Test Results Negative Zaragoza Christoph Impingement Test Results Negative Grind Labrum Test Results Positive left Drop Arm Rotator Cuff Test Results Negative Clunk Test Test Results Positive left Biceps Load II Test Test Results Negative Belly Press Test Results Negative Apprehension Test Test Results Positive left AC Joint Compression Test Results Positive left PT-OP-M Strength Start: 03/20/21 17:35 Freq: Status: Active Protocol: Document 03/20/21 16:45 DCW (Rec: 03/20/21 17:51 DCW [id number]) Shoulder Strength Shoulder Manual Muscle Testing Right Flexion 4+ Good+ Abduction (C5) 4+ Good+ External Rotation 4+ Good+ Internal Rotation 4+ Good+ Left Flexion 3+ Fair+ Abduction (C5) 3+ Fair+ External Rotation 2+ Poor+ Internal Rotation 4+ Good+ PT-OP-T Assessment and Plan Start: 03/20/21 17:35 Freq: Status: Active Protocol: Document 04/01/21 09:36 DCW (Rec: 04/01/21 09:42 DCW [id number]) Physical Therapy Assessment Goals Three Impairment Pt unable to spend more than 2 hours working on her hobby of stained glass Retirement Goal (LTG) Pt to tolerate a return to four hours working in her work room without needing to stop due to left shoulder pain. LTG Duration 05/20/21 Two Impairment Pt unable to carry more than one gallon of milk without left shoulder pain Retirement Goal (LTG) Pt to demonstrate left shoulder MMT grossly 4/5 to improve ability to carry milk and lift objects off of the floor. LTG Duration 05/20/21 One Impairment Pt does not have an appropriate home exercise program Short Term Goal (STG) Pt to be independent and compliant with an appropriate HEP STG Duration 04/20/21 Assessment Summary Assessment Unfortunately, pt was recently laid-off, will be having changes to her insurance, and will no longer be coming to this area, as she lives in [place] and was only in [place] for work. Pt requests discharge at this time, and is hopeful she will be getting an MRI soon for a more accurate diagnosis regarding her shoulder pain. Physical Therapy Plan Frequency and Duration Frequency of Treatment 2x/Week Duration of Treatment Two months Plan of Care Start Date 03/20/21 Plan of Care End Date 05/20/21 Therapeutic Interventions Therapeutic Interventions Home Exercise Program,Joint Mobilizations,Manual Therapy, Patient/Caregiver Education, Self-Care/Home Management,Soft Tissue Mobilization, Therapeutic Activities, Therapeutic Exercises Modalities Cold Pack/Ice Massage,Electric Stimulation,Hot Packs, Ultrasound Discharge Physical Therapy Discharge Reasons Patient Request Discharge Comments Pt requested to be DC'd due to insurance changes. Is still working on getting a referral for an MRI of L shld. Next Visit Focus/Plan Next Note Type Discharge Summary
== END 2021-04-01 12:51 | disposition home or self-care (01) ==
LOC: PHYS 14:30
PROVIDERS: Family Provider Family Medicine; PCP Family Medicine; Referring Provider Orthopaedic Surgery; Visit Provider Orthopaedic Surgery
DX: M25.512 Pain in left shoulder (principal); G89.29 Other chronic pain; M77.8 Other enthesopathies, not elsewhere classified; M19.012 Primary osteoarthritis, left shoulder; M75.42 Impingement syndrome of left shoulder
CPT/HCPCS: 97110; 97140; 97161; 97535